=== PATIENT | female | born 2000 | race Caucasian/White ===

== ENCOUNTER 2019-03-01 15:44 | Outpatient (RCR) | payer BC, OTHER, SELFPAY ==
--- NOTE | 2019-03-01 11:15 | BH.SGPN.GN ---
Behaviors/Verbalizations/Mental Status: []Eye contact is good. Motor activity is appropriate. Appearance is casual. Speech is soft. Mood is anxious. Affect is flat. Thoughts are linear and logical. No evidence of psychosis. Client Response/Progress/Benefit: []Client was engaged in session, quiet, but participating when prompted. Group identified various types of self-care which included spiritual, physical, emotional, social, financial, psychological, and professional. Client did well to reflect upon what she is currently doing in each self-care category and identify areas she can improve to promote balance. Client identified practices she is currently using in the different areas which included: showering, sitting outside, talking with friends, coloring, singing, taking time for herself, and following up with doctor?s appointments. Benefited from assessing current self-care balance and developing strategies to increase self-care in areas she feels are lacking. Client wrote down self-care practices she would like to try such as disconnecting from electronics, using mindfulness, and meditating. Client left group a few minutes early and did not get to share her self-care goal. Client?s first day of PHP. Recommended continued tx to prevent decompensation and reduce symptoms. [
--- NOTE | 2019-03-01 17:14 | BH.MDN ---
Multi-Disciplinary Note - Note 60-min Individual Time Started:: 12:26 Date: 03/01/19 Purpose of session/treatment goals addressed:: The purpose of this session was to process pt first day in IOP program and gather information on client's current stressors, symptoms, and treatment goals. Another goal was to establish rapport, introduce concept of positive affirmations, and provide homework. Eye Contact:: Good Motor Activity:: Appropriate Appearance:: Casual Speech:: Appropriate Mood:: Anxious, Depressed Affect:: Congruent Thoughts:: Linear, Logical, No evidence of hallucinations/delusions noted Staff Interventions:: Therapist used active listening and open-ended questions to elicit information regarding pt's current stressors, symptoms, and supports. Applied strengths perspective to begin establishing rapport and help client identify positives and personal strengths. Therapist provided empathic responses and emotional validation as pt processed events leading up to recent hospitalization. Discussed techniques and means for coping that have helped pt manage stressors in the past. Therapist provided psychoeducation on depression cycles and importance of positive-self talk. Assisted client in identifying overall treatment goals. Therapist gave client homework to practice saying at least one affirmational statement and create a positive music playlist to listen to in times of increased stress. Client Response:: Client responded well to session, discussed that she had enjoyed the first day in PHP program and found materials discussed to relate to her own life and current struggles. Shared connecting with fellow participants and enjoyed the activity portion of group as she noted this had been her favorite part of groups during inpatient hospitalization. Client stated she was referred to [facility] by [facility] following inpatient admission from following suicide attempt via . Pt reports she has been experiencing increased depression and anxiety for a while and that her symptoms were exacerbated after she decided to rent an apartment with her boyfriend who then ended the relationship. She reports becoming overwhelmed by now having to pay for the apartment on her own and struggling to deal with the break-up. She indicated prior hospitalization she began to isolate, sleep for long periods of time throughout the day, experience passive thoughts of , and found she no longer has much of an appetite. Pt went on to describe sx significant for anxiety including racing thoughts, shaking, fear of the future, and crying spells. Following discharge from [facility], pt reports no longer experiencing active suicidal ideation, plan, or intent and attributes this to being removed from triggers at her apartment and having increased support from family as well as hope that she can improve her ability to cope. Per pt report, her family is supportive but does not fully understand pt mental health needs. She went on to indicate that she knows she is not ready to return to independent living at her apartment but finds her parent?s home to be stressful and at times triggering to pt. Further discussed that although pt believes her family means well, they struggle at times with placing high expectations on client, fighting around her which is a trigger, and not being able to understand her. Pt reports her current symptoms include overwhelming stress, racing thoughts, decreased sleep at night and increased sleep throughout the day, poor appetite, low motivation, medication noncompliance, poor hygiene, poor self-esteem, passive thoughts of without plan or intent. Indicates she hopes to return to living on her own by increasing healthy means for coping, improving medication compliance, and expanding her current support network. Risks/Concerns:: Client denies any active suicidal ideation, plan, and intent as of 03/01/19. Future oriented and has supports. Reports family and hope for her future as motivations to live. Progress Toward Goals/Plan:: No progress noted yet as it is client?s first day in PHP. However, pt appears motivated to engage in treatment and shared that the first day had been a positive experience. She indicated she has a history of anxiety, panic, and depression. Reports previous hx of SI, denies current plan or intent and would like to seek tx to better manage mental health sx so she does not decompensate again. Client currently endorses racing thoughts, feeling unmotivated and overwhelmed, increased sleep, increased anxiety about taking on new things, and avoidance. Pt receptive to homework and indicates willing to try applying positive self-talk in order to combat and decrease negative thoughts. Identified her treatment goals to be learning healthy coping skills, reducing depression, and finding ?balance? in her life. Client to continue PHP to prevent decompensation, maintain safety, and increase healthy means of coping. Time Stopped:: 13:16
--- NOTE | 2019-03-02 08:17 | BH.MDN ---
Multi-Disciplinary Note - Note 60-min Individual Time Started:: 12:10 Date: 03/02/19 Purpose of session/treatment goals addressed:: Purpose of this session was to assess current symptoms, stressors, and adjustment to IOP tx. Another purpose was to work with pt to develop a crisis safety plan aimed at identifying warning signs, triggers, healthy coping tools, motivations to live, as well as supports she may use when experiencing increased severity of mental health sx. Eye Contact:: Good Motor Activity:: Appropriate Appearance:: Casual Speech:: Appropriate Mood:: Anxious, Depressed Affect:: Congruent Thoughts:: Linear, Logical, No evidence of hallucinations/delusions noted Staff Interventions:: Asked open-ended and furthering questions to elicit additional information regarding current sx and functioning. Provided empathic responses and supportive feedback. Utilized ID techniques to elicit change behaviors. Provided psychoeducation on internal and external coping skills, grounding techniques, and local crisis resources to help pt create a Crisis Safety Plan. Client Response:: Pt receptive of session, engaged throughout. Discussed continuing to adjust to treatment environment but feels the support of the group has been helpful. Pt indicated that she has been struggling with significant negative self-talk and continues to ruminate on the end of her relationship. Pt discussed feeling purposeless and lonely as she limited support she is able to talk about her current stressors as she had previously relied on her ex for that type of support. Indicates her parents are caring but don?t understand and are often busy with their own things. Noted siblings are not understanding either. Pt did express some friends in the area who she could talk to however is struggling not to isolate. Reported understanding how reaching out to supports could aid in reducing depression and expresses plans to call a friend chance. Continues to report passive SI, without plan or intent. Pt and therapist worked together to complete a Crisis Safety Plan which included: warning signs, emergency telephone numbers, 3-4 coping strategies for SI, lists of supports, positive aspects of his/her life, and motivations. Discussed the benefits and times to use this plan. Reports feeling depressed and anxious today and worried about management of mental health sx while at work. Reviewed internal coping strategies and affirmations pt can use in times of increased anxiety and depression. Pt notes that she can spend time coloring or doing her nails to relax, remind herself ?you can get through this?, and reach out to her supports. Risks/Concerns:: Pt continues to report passive SI, but at a decreased intensity and severity. Denies current plan or intent as of this date 03/02/19. No current access to firearms or large stockpiles of medication. Future oriented and indicates ability to maintain safety. Progress Toward Goals/Plan:: Progress noted. Pt reports feeling less depressed and more supported since beginning program. Consistent attendance. Active participant in groups. Improvedability to identify motivations to life and positive affirmations she can use in times of increased anxiety. Depression, anxiety, and stress continue to impact daily thoughts. Learning to challenge and identify thoughts and distortions. Working to more consistently begin using coping skills. Limited use of supports Will continue in PHP to maintain safety, prevent decompensation, and to increase coping strategies. Time Stopped:: 13:12
--- NOTE | 2019-03-02 09:08 | BH.SGPN.GN ---
Behaviors/Verbalizations/Mental Status: []Client alert and oriented, casually dressed and groomed. Eye contact good. Motor activity appropriate. Speech soft. Affect constricted, mood dysthymic. Thoughts linear, logical, no signs of hallucinations or delusions. Reviewed client?s symptom tracker, no risk for suicidal ideation, plan, or intent as of 03/02/19. Client Response/Progress/Benefit: []Client responded well to session, attentive throughout. Client reports feeling ?tired and less energetic? today. Client current stressor is she has been experiencing increased IBS symptoms and is worried she cannot afford her new IBS medication. Client receptive to feedback from peers on different medications and coupons. Client?s current positives include recently spending time with her family and practicing thought challenging last evening. Client reported she wrote out her negative thoughts and underneath them she wrote reframed thoughts. Appeared to benefit from connecting with peers and receiving supportive statements. Progress noted in client?s application of thought challenging. Will continue IOP tx to prevent decompensation and improve emotional regulation skills.?
--- NOTE | 2019-03-02 11:10 | BH.SGPN.GN ---
Behaviors/Verbalizations/Mental Status: [Client alert and oriented, casually dressed and groomed. Eye contact fair to good. Motor activity appropriate. Speech within normal limits. Affect congruent, mood dysthymic, anxious. Thoughts linear, logical, no signs of hallucinations or delusions. ] Client Response/Progress/Benefit: [Client responded well to session, attentive and engaged during small group session. A times pt appearing to struggle with attentiveness due looking at phone throughout discussion. Group discussed the mental health benefits of recognizing strengths which included; improved self-esteem, better relationships, and being able to better problem solve, as well as willingness to ask for help. Group identified the barriers that have prevented them from acknowledging their strengths and successes. These barriers included; negative thoughts, feeling like a burden, negative outlook, lack of awareness of strengths. Group identified strategies to overcome barriers that prevent them from seeing strengths. These strategies included; keeping track of progress, practicing using affirmations, and reaching out to supports to challenge perspective when needed. Client initially struggling to identify strengths, though able to identify personal strengths she possesses with assistance, which included; independence, intelligence, sense of humor, ability to listen, and creativity. Appeared to benefit from recognizing personal strengths and identifying strategies to overcome barriers. Will continue PHP tx to improve mood stability, further increase healthy coping skills for managing depression and anxiety, maintain safety, and prevent decompensation. ] Narrative Note: []
--- NOTE | 2019-03-02 15:09 | BH.MTP_ITS ---
Master Treatment Plan - Patient Information Program Physician:: Danika Irwin Primary Therapist:: Romina Perry - Estimated LOS Estimated LOS (in weeks):: 1 Problem/Goal #1 - Problem/Goal #1 Stated Goal:: Client will reduce depression, feelings of hopelessness, anhedonia, and negative thoughts, and passive thoughts of due to Major Depressive Disorder through PHP Program. Description of Barriers: Financial stress, limited supports, relationship conflict, low energy and motivation, poor sleep, and intrusive thoughts reinforcing sx of anxiety and depression. Functional Impact: Client is a 18 y/o female who completed the Behavioral Health PHP program on 03/08/19 following inpatient psychiatric hospitalization. Pt was hospitalized at [facility] February 22 - February 25 following suicide attempt via overdose. At time of attempt, pt reports taking 14 ibuprofen following a breakup on February 17. Pt reports a hx of depression and anxiety and has had 2 previous suicide attempts occurring in 2017 and 2018 via overdose. At time of admission, pt reports ongoing depression and anxiety exacerbated by several financial stressors, isolation, and work-related stress, client endorsed a depressed mood, anhedonia, hopelessness, and low self-esteem. Client also endorsed ruminative anxiety most often surrounding the workplace and finances, reports panic attacks, crying spells, and passive SI. Goal Relevant Strengths/Supports: Client presents as a motivated, hard-working, creative, and kind woman who wants to improve her mental health and functioning. Client is open to trying new strategies for managing mental health sx and is willing to learn and apply new skills. Client is active in group and open to sharing around others. Client enjoys spending time with her friends, drawing, and exercising. - Objectives Objective #1 Stated Objective: Work with client to develop a ?crisis plan? which includes emergency telephone numbers, 3-4 coping strategies for SI, lists of supports, positive aspects of life, and motivations. Work with client to identify 3-4 sources or triggers to suicidal ideations to increase insight. Identify 3 effective thought-stopping skills to utilize. Interventions: Therapist will provide list of crisis phone numbers. Therapist will work with client to identify effective coping strategies and steps to take in time of mental health crisis and provide psychoeducation regarding effective calming strategies. Work with client to identify mental health warning signs/triggers for depression or experienced prior to previous crisis. Discharge Criteria: Client will have achieved this goal once he completes his safety plan and is able to utilize coping and thought replacement strategies to prevent and manage symptoms associated with increased depression or warning sign s for crisis escalation. Target Date: 03/09/19 Review Date: 03/09/19 Problem/Goal #2 - Problem/Goal #2 Stated Goal:: Reduce overall frequency, intensity, and duration of the anxiety so that daily functioning and occupational functioning is not impaired. Description of Barriers: Financial stress, limited supports, relationship conflict, low energy and motivation, poor sleep, and intrusive thoughts reinforcing sx of anxiety and depression. Functional Impact: Client is a 18 y/o female who completed the Behavioral Health PHP program on 03/08/19 following inpatient psychiatric hospitalization. Pt was hospitalized at [facility] February 22 - February 25 following suicide attempt via overdose. At time of attempt, pt reports taking 14 ibuprofen following a breakup on February 17. Pt reports a hx of depression and anxiety and has had 2 previous suicide attempts occurring in 2017 and 2018 via overdose. At time of admission, pt reports ongoing depression and anxiety exacerbated by several financial stressors, isolation, and work-related stress, client endorsed a depressed mood, anhedonia, hopelessness, and low self-esteem. Client also endorsed ruminative anxiety most often surrounding the workplace and finances, reports panic attacks, crying spells, and passive SI. Goal Relevant Strengths/Supports: Client presents as a motivated, hard-working, creative, and kind woman who wants to improve her mental health and functioning. Client is open to trying new strategies for managing mental health sx and is willing to learn and apply new skills. Client is active in group and open to sharing around others. Client enjoys spending time with her friends, drawing, and exercising. - Objectives Objective #1 Stated Objective: Client will identify 2-3 anxiety/rumination triggers and at least 2-3 coping skills to use when feeling overwhelmed or anxious. Interventions: Therapist will help client increase awareness of cognitive distortions, triggers, and warning signs for anxiety. Therapist will encourage client to focus on stressors relevant to the situation and that are in his control. Therapist will utilize CBT, DBT, and mindfulness strategies to teach client ways to manage symptoms and increase emotional regulation. Discharge Criteria: Client will have met this goal when can reduce the need for reassurance and identify at least 2 triggers and 2 ways to cope with anxiety and obsessive thoughts. Target Date: 03/09/19 Review Date: 03/09/19
--- NOTE | 2019-03-03 09:02 | BH.SGPN.GN ---
Behaviors/Verbalizations/Mental Status: [Client alert and oriented, casually dressed and appropriately groomed. Eye contact good. Motor activity appropriate. Speech within normal limits. Affect congruent to topic being discussed, mood depressed, anxious. Thoughts linear and logical, no signs of hallucinations or delusions. Reviewed daily check in sheet, pt reports SI as a 2/5, denies current SI, plan, or intent. Will meet with individual counselor to further assess for safety] Client Response/Progress/Benefit: [Pt engaged in group discussion, listening and providing some input to discussion Emotion for today is relieved but slightly hyper. Pt indicated that current emotion is due to feeling more comfortable with her ability to cope with current mental health stressors and getting a solid night?s sleep. Able to identify current mental health wins. Expressed win as using calming skills while at work to manage anxiety and found positive self-talk to be particularly helpful. Indicates that current stressors is concern for the mental health of a friend of hers. Able to recognize importance of balance when providing support so sh does not become emotionally burnt out as well. Pt receptive of and appearing to benefit from feedback and support provided by fellow participants. Progress indicated by pt self-report of more consistent skill application and reduction of anxiety. Pt recommended continued PHP tx to promote continued use of coping skills, maintain stability, and prevent decompensation. ] Narrative Note: []
--- NOTE | 2019-03-03 10:37 | BH.NA_ITS ---
Physical Data - Vital Signs Pulse Rate: 86 Respiratory Rate: 14 Blood Pressure: 110/73 - Height/Weight Height: 1.55 m Weight:: 54.5 kg Weight in Pounds: 120.2 lbs Current Medication Compliance - Medication Compliance Do you take your medication as prescribed?: Yes Do you need assistance with taking medication?: No Have you had side effects from medication?: No Nutritional History - Appetite Nutritional Instructions:: If client shows signs of a swallowing problem, weight change of 10 pounds or more in the last month, or is on a diabetic diet, the physician will review and request a dietitian consult, as appropriate. All unintentional weight loss will be referred to the physician for decision on need for dietitian consult. Describe your appetite:: Fair Have you noticed a change in your eating habits lately?: Yes Functional Assessment - Sleep Pattern Describe any problems with sleeping: Client reports difficulty staying asleep most nights, which she relates to her anxiety and rumination. - Activities Motor Activity:: Functional Sensory/Communication Assess - Hearing Problems Do you have any hearing problems?: Adequate - Communication Problems Do you have difficulty understanding what people are saying?: No Do you have trouble putting your thoughts into words or expressing what you want to say?: No Do people ever have trouble understanding what you say?: No What is your primary language?: Lithuanian Learning Assessment - Learning Barriers Learning Barriers:: Ready to learn Medical Problems/History - Pain Assessment Do you have acute or chronic pain?: No - Female Reproductive Do you think you may be ?: No Number of pregnancies:: 0 Number of children:: 0 Have you reached menopause?: No Do you have any history of breast disease?: No - Family History Family History: Family History (Last Reviewed 03/29/19 @ 13:53 by Janice Morales) Other Hypertension Surgical History - Surgical History Have you had any surgeries? If so, list type and date:: No Substance Abuse - Substance Abuse Please describe substance abuse in the last 30 days:: Client denies ETOH, tobacco, and substance use. Mental Status Summary - Mental Status Significant Findings/Observations on Appearance and Mood:: Niharika is A&Ox4, cooperative with interview, and makes good eye contact. Steady gait. Speech is clear and of normal rate and volume. Mild depression, anxiety, and anhedonia. Mood congruent affect. Logical associations. Normal process. No symptoms of delusions. Denies hallucinations, HI, and SI. Suicide Assessment - Suicidal Ideation Are you currently or have you been suicidal in the past?: Yes Suicidal Intentional Rating Scale (SIRS): Suicidal thoughts (past) Physician Notification: If Active suicidal thoughts/Will not contract for safety is checked, contact physician and document in the Physician Notification section below. Past Psychiatric History - MH Treatment Hx Past Psychiatric Medications:: Lexapro ECT Therapy Details:: N/A Describe (age, circumstance, etc) any past hospitalizations: 02/22/19-02/25/19: [facility] for SI without plan/intent Fall Risk Assessment - Age Age: Less than 60 - Mental Status Mental Status: Willing & able to ask for assistance when needed - Physical Status Physical Status: No problems - Impairments Impairments: None - Elimination Elimination: Continent AND independent - Gait or Balance Gait or Balance: Walks independently - Hx of Falls History of falls in the past 6 months: No known history - Medications/Substances Psychotropics:: Antidepressants Medications/substances used within the past 24 hours or ordered to administer: 1-2 of the medications/substances listed above - Total Score Total Points:: 1 Physician Notification - Physician Notification Physician Notified: Danika Irwin Method of Notification: Face to Face Comments: treatment planning discussion RN Summary of Impressions - Impressions Recommendations: Include psychiatric and medical issues, treatment planning recommendations, and discharge planning needs. Impressions: Psychiatric Issues: severe MDD, recurrent, without psychosis Impression: General Medical Conditions: IBS Impressions: Discharge Planning Needs: Client is connected with PCP - Level of Care How do the client's current symptoms and functional deficits support need for this level of care?: Client notes a decompensation in her mental health for several weeks, endorsing passive thoughts of and panic attacks. She was recently hopsitalized due to suicidal ideations, and while she is no longer having active SI, she is still quite depressed. She also recently stopped taking Lexapro and is not currently on any antidepressant or psychiatric medication. Niharika notes that she has been ruminating and sad about a recent breakup, finances, and her living situation. She has had a diminished appetite, which seems to be slowly returning, but no significant weight loss. Client also endorses sleep quality below her baseline. IOP will promote gains and provide social support while preventing further decompensation.
--- NOTE | 2019-03-03 10:37 | BH.NET ---
Nursing Education/Training - Session Information Type of Session: Individual Medical Management:: IBS and associated medications Symptom management (include medical issues as they relate to psychiatric symptoms):: Niharika notes that she has not been taking the Amitiza that she was prescribed by her PCP for IBS-C due to insurance and cost issues. She notes that PCP's office attempted to get the medication prior authorized, but her portion of the cost was still over $200, which she cannot afford. Client was advised to contact the office to request another medication for this condition that may be covered, possibly Linzess. Other Health Issues:: Advised client to contact this nurse with any other health concerns or questions, or if able to assit in this matter further. She denies additional questions or needs at this time.
[2019-03-03 10:42] VITALS: BP 110/73; PULSE 86; RESP 14
--- NOTE | 2019-03-03 11:15 | BH.SGPN.GN ---
Behaviors/Verbalizations/Mental Status: []Client alert and oriented, casually dressed and groomed. Eye contact good. Motor activity slowed. Speech within normal limits. Affect constricted, mood mellow. Thoughts linear, logical, no signs of hallucinations or delusions. Client Response/Progress/Benefit: []Client participated in group discussion, taking notes, and providing input to discussion. Attentive during psychoeducation on 4 zones of regulation. Client able to identify how she feels in each zone as well as how she acts in each zone. Client also able to identify coping skills she can use to support herself in each zone which included: deep breathing, showering, using positive self-talk, and taking care of self-care needs. Client shared she is in the ?green/yellow zones? or the alert and heightened alertness zones as client shared ?I?m feeling better, almost stable, but I still feel restless and on edge.? Client recognized she could benefit from reaching out to her supports today and practicing positive self-talk. Benefited from group from increased education on zones of regulation or stages of alertness for emotions and healthy coping skills to use for each zone. Recommended continued PHP tx to prevent decompensation, maintain safety, and increase application of healthy coping skills.
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
--- NOTE | 2019-03-03 14:57 | BH.MDN ---
Multi-Disciplinary Note - Note 60-min Individual Time Started:: 12:16 Date: 03/03/19 Purpose of session/treatment goals addressed:: Purpose of this session was to assess current symptoms, stressors, and progress in PHP tx. Another purpose was to work with pt on reviewing cycle of depression and identifying small opposite action goals to improve confidence and reduce sx severity. Eye Contact:: Good, Other - tearful at times throughout discussion Motor Activity:: Appropriate Appearance:: Casual Speech:: Appropriate Mood:: Anxious, Dysthymic Thoughts:: Linear, Logical, No evidence of hallucinations/delusions noted Staff Interventions:: Asked open-ended and furthering questions to elicit additional information regarding current sx, stressors, and skill application. Provided empathic responses and supportive feedback, as well as aided pt in challenging distortions impacting anxiety and self-esteem levels. Provided psychoeducation on maintenance cycles and Utilized MS techniques to elicit change behaviors and establish small opposite action goals for reducing mental health sx severity. Client Response:: Pt receptive of session, engaged throughout. Discussed observing improvements in her overall mood and is feeling less lethargic throughout the day and more relaxed. Pt notes struggles with anxiety and depression, to which she attributes to current stressors of finances, occupational expectations, and her parents. Pt discussed feeling invalidated and blamed by her parents for her mental health struggles. Noted that they had ?accused me of planning my depression? because she began experiencing sx around the same time as a friend of hers. Able to regulate herself when confronted and shared ?taking a step back to eat and take a deep breath, rather than responding?. Pt noted listening to music to calm herself afterwards. Expressed feeling like a burden, however did well to work with therapist on challenging these thoughts. Identified affirmational statements she put in her room to read when feeling unsupported or having negative thoughts about self. Went on to indicate another major stressor as anxiety in the workplace and explained ?I was shaking at work yesterday, I was so anxious?. Worked with therapist to identify workplace triggers and potential strategies for reducing triggering stimuli, taking a break, and ways to calm herself when feeling overwhelmed. Additionally, pt identified she could speak to her boss about taking on less while working on her mental health in the PHP program to reduce anxiety. Risks/Concerns:: Pt continues to report passive SI, but at a decreased intensity and severity. Denies current plan or intent as of this date 03/03/19. No current access to firearms or large stockpiles of medication. Future oriented and indicates ability to maintain safety. Progress Toward Goals/Plan:: Progress noted. Pt reports feeling less depressed andis taking strides to engage in self-care activities and basic hygiene practices. Reports improved ability to use calming skills when triggered and prevent escalating to point of crisis. Pt continues to report that depression, anxiety, and stress continue to impact daily thoughts; however this is improving with more consistent skill application. Limited use of supports, however pt has taken steps to reach out to a friend via text. Will continue in PHP to maintain safety, prevent decompensation, and to increase coping strategies. Time Stopped:: 13:08
--- NOTE | 2019-03-04 09:00 | BH.SGPN.GN ---
Behaviors/Verbalizations/Mental Status: []Client alert and oriented, casually dressed and groomed. Eye contact good. Motor activity appropriate. Speech within normal limits. Affect full, mood calm. Thoughts linear, logical, no signs of hallucinations or delusions. Reviewed client?s symptom tracker, no risk for suicidal ideation, plan, or intent as of 03/04/19. Client Response/Progress/Benefit: []Client responded well to session, participating when prompted. Client reports feeling ?alert and less numb? today. Client reported she used coping skills since last session and client was able to recognize positives. Client?s positives included swimming with her parents, getting paid this morning, and using positive self-talk when exposed to negativity. Client shared she continues to feel anxiety and frustration about her physical health problems. Client shared she has to figure out a new medication for her IBS and it is causing client increased anxiety. Client was provided ideas from group on how she can deal with this. Appeared to benefit from processing stressors with group support. Progress noted in client?s report of using self-talk. Will continue IOP as she continues to struggle with mood instability.?
--- NOTE | 2019-03-04 09:22 | BH.MDN ---
Multi-Disciplinary Note - Note 45-min Individual Time Started:: 12:21 Date: 03/04/19 Purpose of session/treatment goals addressed:: Purpose of this session was to assess current symptoms, stressors, and progress in PHP tx. Another purpose was to work with pt on identifying effective ways to communicate her needs and set healthy boundaries in the workplace. Eye Contact:: Good Motor Activity:: Appropriate Appearance:: Casual Speech:: Appropriate Mood:: Euthymic, Anxious Affect:: Full Thoughts:: Linear, Logical, No evidence of hallucinations/delusions noted Staff Interventions:: Asked open-ended and furthering questions to elicit additional information regarding current sx, stressors, and skill application. Provided empathic responses and supportive feedback, as well as aided pt in challenging distortions impacting anxiety and self-esteem levels. Provided psychoeducation on boundary setting and aided pt in developing phrases for communicating boundaries. Utilized CT techniques to promote ongoing change behaviors. Client Response:: Pt receptive of session, engaged throughout. Shared she continues to feel increased energy and reduced depression. Noted feeling hyper today and is not sure why but worries that she will ?crash? and begin struggling again. Receptive of discussion on identifying small positives throughout the day in order to maintain a more optimistic/positive outlook. Pt shared she has not yet discussed cutting back on responsibilities at work due to anxiety about doing so. Completed decisional balance with therapist weighing pros/cons of having the conversation about boundaries. Insight that continuing to avoid discussion will only reinforce anxiety. Open to working with therapist on creating assertive boundary setting statements for pt to practice in order to communicate her needs with her boss. Discussed ways to calm herself and encourage follow through prior to discussion. Indicates planning to practice identified statements as well as use self-coaching statements. Willing to speak with her employer this evening. Risks/Concerns:: Denies current SI, plan, or intent as of this date 03/04/19. No current access to firearms or large stockpiles of medication. Future oriented and indicates ability to maintain safety. Progress Toward Goals/Plan:: Some progress noted. Pt reports feeling less depressed and notes improved energy as well. Additionally, discussed not experiencing any SI in past day which indicates progress as well. Continues to report anxiety in social settings or times of potential conflict, however notes willingness to continue working to improve in this area. Is using self-soothing and positive self-talk to do so. Reports goal of beginning to move back into her apartment as she continues to stabilize. Will continue in PHP to maintain safety, prevent decompensation, and to increase coping strategies. Time Stopped:: 13:12
--- NOTE | 2019-03-04 10:04 | BH.SGPN.GN ---
Behaviors/Verbalizations/Mental Status: [Client alert and oriented, casually dressed and appropriately groomed. Eye contact fair to good. Motor activity appropriate. Speech within normal limits. Affect congruent, mood euthymic, anxious. Thoughts linear, logical, no signs of hallucinations or delusions. ] Client Response/Progress/Benefit: [Client was an active participant in group activity and provided input to discussion throughout. She connected with the topic of obstacles and solutions and worked with group to identify common internal and external barriers that could prevent progress towards desired reality. Client discussed with the group struggling to identify and address internal barriers at times which then makes it difficult to manage mental health sx. With assistance, pt able to identify her own internal barriers preventing pt from reaching desired reality which included: people pleasing, assuming the worst, stubbornness, and fear of the unknown. Benefited from group as client was able to identify impact of internal barriers on current mental health state and ability to make progress. Will continue PHP to prevent decompensation and improve application of skills learned, as well as reduce depression and anxiety.] Narrative Note: []
--- NOTE | 2019-03-05 09:06 | BH.SGPN.GN ---
Behaviors/Verbalizations/Mental Status: []Client alert and oriented, disheveled appearance. Eye contact good. Motor activity appropriate. Speech within normal limits. Affect full, mood euthymic. Thoughts linear, logical, no signs of hallucinations or delusions. Reviewed client?s symptom tracker, no risk for suicidal ideation, plan, or intent as of 03/05/19. Client Response/Progress/Benefit: []Client responded well to session, attentive and engaged throughout session. Client reports feeling ?off and less energetic? today. Client unable to identify a specific trigger, but with further exploration, client recognized that she did not take her medications this morning which is likely a contributor. Client?s mental health wins today included using positive self-talk at work yesterday and being able to cope with her anxiety ?without freaking out? at work. Client shared she started to have symptoms of a panic attack while she was working yesterday, but client reported she was able to calm herself down by deep breathing. Client appeared to benefit from reflecting on her generalization of coping skills. Will continue tx to promote use of healthy coping skills and increase daily functioning through reduction of symptoms.
--- NOTE | 2019-03-05 09:23 | BH.MDN ---
Multi-Disciplinary Note - Note 60-min Individual Time Started:: 08:28 Date: 03/05/19 Purpose of session/treatment goals addressed:: Purpose of this session was to assess current symptoms, stressors, and progress in PHP tx. Another purpose was to work with pt on identifying strategies for reducing anxiety and maintaining stability as she begins transitioning back to independent housing. Eye Contact:: Good Motor Activity:: Appropriate Appearance:: Casual Speech:: Appropriate Mood:: Euthymic, Anxious Affect:: Congruent Thoughts:: Linear, Logical, No evidence of hallucinations/delusions noted Staff Interventions:: Asked open-ended and furthering questions to elicit additional information regarding current sx, stressors, and skill application. Provided empathic responses and supportive feedback, as well as commended pt for application of distress tolerance skills and advocating for her needs. Utilized [place] techniques to promote ongoing change behaviors and identify strategies to maintain stability as pt m=returns to independent living. Client Response:: Pt receptive of session, engaged throughout. Shared successfully following through with plan to speak with her boss about reducing workplace responsibilities while to improve anxiety management. Pt explained initially not wanting to have the conversation and began usual responsibilities, however found herself becoming increasingly anxious in doing so and identified consequences of not advocating for her needs. Pt shared ?I don?t want to keep having panic attacks at work so I decided to go through with it?. Indicated the conversation had been successful and employer agreeable. Pt went on to discuss that she has thought more about wanting to get back to living on her own and return to her apartment rather than continue to stay with her parents. Noted insight that the environment contains some triggers reminding her of her ex and explained going back to the apartment on previous date to change the sheet and remove items that remind her of her ex. She discussed with this therapist plans to start small and just stay at the house one night. Plans to do so on Friday and will consider having her sister come stay with her as well. Worked to identify ways to make the environment more inviting and comfortable. Pt indicated plans to hang-up positive quotes and images around the apartment. Discussed that she could complete activities she previously enjoyed to improve self-confidence and feel more like herself and comfortable in own skin. Indicated plans to get her hair done and listen to her favorite music. Risks/Concerns:: Denies current SI, plan, or intent as of this date 03/05/19. No current access to firearms or large stockpiles of medication. Future oriented and indicates ability to maintain safety. Progress Toward Goals/Plan:: Progress noted. Pt reports increased ability to regulate her emotions and better manage symptoms of anxiety. Indicates improved ability to engage in self-care and indicates increased self-esteem as well. Noted that she continues to struggle at times with managing her emotions and ruminating thoughts causing anxiety. Expressed some reduction of isolation but continues to struggle in this are. Reports ongoing goal of beginning to move back into her apartment as she continues to stabilize. Will continue in PHP to maintain safety, prevent decompensation, and to increase coping strategies. Time Stopped:: 09:15
--- NOTE | 2019-03-05 10:15 | BH.SGPN.GN ---
Behaviors/Verbalizations/Mental Status: []Client alert and oriented, casually dressed and groomed. Eye contact good. Motor activity appropriate. Speech within normal limits. Affect constricted, mood anxious. Thoughts linear, logical, no signs of hallucinations or delusions. Client Response/Progress/Benefit: []Client responded well to session, attentive throughout session and often nodding. Client indicated connecting with the topic of cognitive distortions and nodded at the comment that thoughts can destroy one?s ability to function. Client agreed with group that negative thoughts impact one?s emotions, behaviors, and increase mental health symptoms. Client did well to work with the group on defining the various types of cognitive distortions and their impact on mental health. Client reported connecting with distortions of disqualifying the positives, mind-reading, and predicting the future. Appeared to benefit from increasing awareness of cognitive distortions and how they can impact emotions and behaviors. Client is showing strides in increasing awareness and learning coping skills. Will continue PHP to promote mood stability, maintain safety, and increase application of coping skills.
--- NOTE | 2019-03-08 09:03 | BH.SGPN.GN ---
Behaviors/Verbalizations/Mental Status: []Client alert and oriented, disheveled appearance. Eye contact good. Motor activity appropriate. Speech within normal limits. Affect congruent, mood euthymic. Thoughts linear, logical, no signs of hallucinations or delusions. Reviewed client?s symptom tracker, no risk for suicidal ideation, plan, or intent as of 03/08/19. Client Response/Progress/Benefit: []Client responded well to session, providing to discussion and attentive throughout. Client reports feeling ?happy and tired? today. Client shared her current mental health positives with the group which included moving back into her apartment and ?not freaking out? at work this weekend. Client reported using deep breathing, self-talk, and self-care has helped client better manage her symptoms. Client stated that she is also looking into getting an emotional support dog to further promote mood stability. Client?s current stressor is needing to schedule an appointment for the doctor. Client shared knowing she needs to get this done and client could get the right medicine, is motivating client to schedule the appointment sooner rather than later. Client appeared to benefit from connecting with peers and reflecting on her generalization of coping skills. Progress noted in application of coping skills. Will continue PHP tx to further reduce symptoms and improve mood stability.
--- NOTE | 2019-03-08 09:24 | BH.MDN ---
Multi-Disciplinary Note - Note 45-min Individual Time Started:: 12:31 Date: 03/08/19 Purpose of session/treatment goals addressed:: Purpose of this session was to assess current symptoms, stressors, and progress in PHP tx. Another purpose was to identify areas for continued progress and goals for IOP tx. Eye Contact:: Good Motor Activity:: Appropriate Appearance:: Casual Speech:: Appropriate Mood:: Anxious, Dysthymic Affect:: Congruent Thoughts:: Linear, Logical, No evidence of hallucinations/delusions noted Staff Interventions:: Asked open-ended and furthering questions to elicit information regarding current sx, stressors, and progress in PHP treatment. Provided empathic responses and supportive feedback. Utilized [place] techniques to promote ongoing change behaviors, recognize areas for continued growth, and identify goals for IOP treatment. Client Response:: Pt reports some anxiety and depression today. Reports this is due to struggling with unexpected medical issues related to her reproductive health. Shared that she has been in a lot of pain recently and fears that there may be something seriously wrong. 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 Noted feeling her concerns will continue to be invalidated if returns to the doctor. Able to work with therapist on challenging distortions associated with this stressor. Some difficulties in challenging use of catastrophizing. Open to seeking a second opinion with [facility] gynecology to ensure medical needs are met. Worked with therapist to discuss areas of progress in php tx and focus of treatment upon stepping down to IOP level of care. Pt reports improvements in reduced depression and anxiety, improved mood stability, and better use of healthy coping skills in times of increased stress. Denies any suicidal ideations, plan, or intent. Reports feeling more comfortable being alone in the house. Insight into the positives of being more independent. Expressed desire to continue to improve self-confidence, reduce anxiety and depression, and continue to promote healthy boundaries. Risks/Concerns:: Denies current SI, plan, or intent as of this date 03/08/19. No current access to firearms or large stockpiles of medication. Future oriented and indicates ability to maintain safety. Progress Toward Goals/Plan:: Progress noted. Denies any suicidal ideations, plan, or intent. Reports decreased frequency, intensity, and duration on negative self talk and depression. Feeling more comfortable being alone in the house. Insight into the positives of being more independent. Has improved ability to manage sx of anxiety. No longer meets criteria of PHP level of care. Treatment goals accomplished. Discussed with treatment team will plan to step down to IOP. Time Stopped:: 13:13
--- NOTE | 2019-03-08 11:20 | BH.SGPN.GN ---
Behaviors/Verbalizations/Mental Status: [Client alert and oriented, casually dressed and groomed. Eye contact good. Motor activity appropriate. Speech within normal limits. Affect congruent, mood anxious, dysthymic. Thoughts linear, logical, no signs of hallucinations or delusions. ] Client Response/Progress/Benefit: [Client responded well to session, contributing to discussion. Engaged in ongoing psychoeducation on the different communication styles. Client connected with fellow participant?s personal example of how communication can lead to conflict and misunderstanding. Able to gain insight into her communication style and identified falling into each of the communication styles at different times, provided example of aggressive with family but passive at work. Client reported these communication styles have negatively impacted her mental health and relationships by reinforcing anxiety and preventing needs from being met. Participated in group activity and able to use the activity to reflect on ways to improve communication. Attentive during psychoeducation on effective communications strategies and reported she wants to work on self-confidence to feel more confident in ability to communicate her needs as well. Appeared to benefit from increasing self-awareness and practicing in the moment coping skills. Scheduled to step-down to IOP level of care given progress in PHP. Will continue tx to prevent decompensation and improve mood stability.] Narrative Note: []
--- NOTE | 2019-03-08 16:21 | BH.DS ---
Discharge Summary - Demographics Date of Admission:: 03/01/19 Discharge Date: 03/08/19 Presenting Problems at Admission:: Client was recently discharged from inpatient psychiatric hospitalization at [facility] February 22 - February 25 following suicide attempt via overdose. Pt reports taking 14 ibuprofen after going through a breakup on February 17. Pt reports a hx of depression and anxiety and has had 2 previous suicide attempts occurring in 2017 and 2018 via overdose. Reports she had been experiencing increased depression and anxiety for the past several months which was exacerbated by her boyfriend ending the relationship after pt signed a lease for an apartment they were supposed to rent together. At admission, client endorsed a moderately depressed mood with low motivation and mild anhedonia, inconsistent sleep, hopelessness, negative self-talk, and low self-esteem. Client also endorsed ruminative anxiety most often surrounding social situations and finances, panic attacks on a weekly basis. She denies a history of self-harm. For primary support she reports she has friends and her family, however at times indicate family as increasing anxiety. Discharge Diagnoses:: Major depressive disorder recurrent severe without psychosis, generalized anxiety disorder Reason for Discharge:: Pt no longer meets criteria for [facility] level of care as she has successfully completed treatment plan goals and no longer reports SI and indicates reduction in frequency and intensity of passive thoughts of . Pt indicates increased use of healthy coping skills for managing depression and anxiety. - Treatment Progress During Treatment & Response: Client appeared to respond well to treatment as evidenced by reports of improved ability to manage sx of anxiety and depression when recognizing warning signs and prevent escalation. Pt has displayed increased ability to apply internal coping skills of positive self-talk, posting affirmational statements around her living areas, and begin challenging unhelpful thought patterns. Pt has been able to make strides in reducing anxiety which is evidenced by her ability to move out of her parent?s house and return to her apartment. She is no longer reporting frequent thoughts of and denies active SI, plan, or intent. Pt has successfully completed a Crisis Safety Plan and indicates having hanging in a location easily accessible. While admitted in [facility], client was an active participant, seemed receptive to feedback from peers, took notes during sessions, and asked questions when needing clarification. Client was engaged in individual sessions as evidenced by her consistent completion of homework, openness and willingness to discuss her mental health and emotions, as well as application of skills discussed throughout sessions. At times pt appeared to experience difficulties in consistent application of coping skills and healthy boundaries. Pt additionally demonstrated progress during PHP through her ability to maintain safety, reports of decreased anxiety at home and in the workplace resulting in a reduction of symptoms of panic while at work, as well as an increase in in ability to practice self-care. Client stated actively using deep breathing, positive affirmations, thought challenging/reframing, and reaching out to her step-mother for support. Issues Still to be Addressed:: Pt has made progress with maintaining safety, following her safety plan, challenging negative thought patterns, and is beginning to use healthy coping skills to manage symptoms. However, she continues to struggle with negative self-esteem, rumination, setting healthy boundaries, and using internal coping skills to manage anxiety. Pt can continue to benefit from ongoing IOP treatment to prevent decompensation, increase self-esteem and coping skills, establish healthy boundary setting, and reduce negative thinking patterns. Discharge Recommendations/Instructions:: Client recommended to step down to IOP level of care to maintain gains, prevent decompensation, and further stabilize mood. Client would benefit from continued support, increased use of internal and external coping skills, increased distress tollerance skills, and medication management. Discharge Handout: Complete Discharge Handout with client on aftercare options and continuity of care.
--- NOTE | 2019-03-15 08:57 | BH.DS ---
Discharge Summary - Demographics Date of Admission:: 03/01/19 Discharge Date: 03/08/19 - Treatment Discharge Handout: Complete Discharge Handout with client on aftercare options and continuity of care.
== END 2019-03-08 14:00 | disposition home or self-care (01) ==
LOC: BHPHP 15:44
PROVIDERS: Family Provider Nurse Practitioner Family; PCP Nurse Practitioner Family; Referring Provider Psychiatry & Neurology Psychiatry; Visit Provider Psychiatry & Neurology Psychiatry
DX: F33.2 Major depressive disorder, recurrent severe without psychotic features (principal); F41.1 Generalized anxiety disorder; Z79.899 Other long term (current) drug therapy
CPT/HCPCS: H0035; 90834; 90837; G0410

== ENCOUNTER 2019-03-09 09:00 | Outpatient (RCR) | payer BC, OTHER, SELFPAY ==
--- NOTE | 2019-03-01 10:12 | BH.SGPN.GN ---
Behaviors/Verbalizations/Mental Status: [Pt alert and oriented, eye contact fair to good, casually dressed, motor activity appropriate, speech normal rate and tone, mood depressed, anxious, congruent affect, thoughts linear and intact, no evidence of delusions or hallucinations.] Client Response/Progress/Benefit: [Client engaged participant as shown by client?s contribution to discussion, insight provided, and taking notes throughout. Client participated in the discussion of the common myths about self-care including self-care is selfish, just involves hygiene, makes us weak, and always fun. Client worked with group to debunk the myths about self-care. Client stated she has been working to increase her time spent on self-care but continues to struggle with doing so due to putting other priorities first. Expressed noticing increased ability to cope with stress when caring for her own needs. Client seemed to benefit from increased awareness of the importance of self-care. Client showing variable progress as shown by continued difficulties in consistent use of healthy skills, especially at times of increased anxiety, when faced with an unexpected stressor, or struggling with motivation. Will continue tx to identify and challenge distorted thoughts, increase healthy coping skills, and prevent decompensation.] Narrative Note: []
--- NOTE | 2019-03-09 09:00 | BH.SGPN.GN ---
Behaviors/Verbalizations/Mental Status: [] Eye contact is good. Motor activity is appropriate. Appearance is casual. Speech is Appropriate. Mood is depressed. Affect is flat. Thoughts are linear and logical. No evidence of psychosis. Reviewed daily check in sheet and no reports of suicidal ideations or intent. Client Response/Progress/Benefit: [] Pt spoke when prompted. Quiet for majority of the group. Emotion for today is tired. Shared with the group that she had to set boundaries with ex last night. Reported how the relationship is toxic and causing significant distress for her. Shared the challenges with setting boundaries and moving on from past relationship however stated numerous times that she needs to worry about herself, focus on her mental health, and not cause unnecessary stress in her life. Admits that talking with ex increases depression and lead to SI, however reports that she used all her skills last night. Utilizing skills to manage thoughts. Increased insight and reports motivation to set firm boundaries. Progress noted per pt report. Benefited from group support, feedback, and encouragement. Will continue in IOP maintain safety, increase healthy coping, set boundaries, and decrease suicidal ideations. Narrative Note: []
--- NOTE | 2019-03-09 09:26 | BH.MTP_ITS ---
[facility] Treatment Plan - Patient Information Program Physician:: Dr. Danika Irwin Primary Therapist:: MICHOACANO Graves - Psychiatric Diagnoses Psychiatric Diagnoses:: Major depressive disorder recurrent severe without psychosis, generalized anxiety disorder. Diagnosis Code(s):: F33.2 - Estimated LOS Estimated LOS (in weeks):: 6 Problem/Goal #1 - Problem/Goal #1 Stated Goal:: Client will reduce depression, feelings of hopelessness, anhedonia, and negative thoughts, and passive thoughts of due to Major Depressive Disorder through Intensive Outpatient Program. Description of Barriers: Financial stress, limited supports, relationship conflict, low energy and motivation, poor sleep, and intrusive thoughts reinforcing sx of anxiety and depression. Functional Impact: Client is a 18 y/o female who completed the Behavioral Health PHP program on 03/08/19 following inpatient psychiatric hospitalization. Pt was hospitalized at [facility] February 22 - February 25 following suicide attempt via overdose. At time of attempt, pt reports taking 14 ibuprofen follow ing a breakup on February 17. Pt reports a hx of depression and anxiety and has had 2 previous suicide attempts occurring in 2016 and 2018 via overdose. At time of admission, pt reports some decrease in mental health sx since completing the PHP program, however continued to indicate ongoing depression and anxiety exacerbated by several financial stressors, isolation, and work-related stress. At IOP admission, client endorsed a depressed mood, mild anhedonia, hopelessness, and low self-esteem. Client also endorsed ruminative anxiety most often surrounding the workplace and finances, reports decreased panic attacks though continues to experience them on an infrequent basis. She denies a history of self-harm. For primary support she reports she has friends and her family, however at times indicates family as increasing anxiety due to yelling or limited understanding of pt mental health. Goal Relevant Strengths/Supports: Client presents as a motivated, hard-working, creative, and kind woman who wants to improve her mental health and functioning. Client is open to trying new strategies for managing mental health sx and is willing to learn and apply new skills. Client is active in group and open to sharing around others. Client enjoys spending time with her friends, drawing, and exercising. - Objectives Objective #1 Stated Objective: Client will consistently identify warning signs for depression and utilize 2-3 healthy coping strategies outside of distraction to manage depressive symptoms and increase mood stability. Interventions: Therapist will assist client in identifying warning signs and triggers for depression, suicidal ideation, and feelings of hopelessness. Therapist will teach client coping skills to reduce depression and encourage healthy emotional regulation. Discharge Criteria: Client will have accomplished this goal when he can identify and report using 2-3 healthy coping skills to reduce depressive symptoms. Target Date: 04/20/19 Review Date: 04/06/19 Objective #2 Stated Objective: Identify at least 2-3 negative self-talk messages used to reinforce feelings of worthlessness and replace thoughts with positive messages Interventions: Therapist will help client identify distorted, negative beliefs about self and replace with more realistic, affirmative messages. Discharge Criteria: Client will have achieved this goal when can verbalize at least 2 negative self-talk messages and effectively replace those thoughts with affirmative messages. Target Date: 04/20/19 Review Date: 04/06/19 Problem/Goal #2 - Problem/Goal #2 Stated Goal:: Reduce overall frequency, intensity, and duration of the anxiety so that daily functioning and occupational functioning is not impaired. Description of Barriers: Financial stress, limited supports, relationship conflict, low energy and motivation, poor sleep, and intrusive thoughts reinforcing sx of anxiety and depression. Functional Impact: Client is a 18 y/o female who completed the Behavioral Health PHP program on 03/08/19 following inpatient psychiatric hospitalization. Pt was hospitalized at [facility] February 22 - February 25 following suicide attempt via overdose. At time of attempt, pt reports taking 14 ibuprofen following a breakup on February 17. Pt reports a hx of depression and anxiety and has had 2 previous suicide attempts occurring in 2017 and 2018 via overdose. At time of admission, pt reports some decrease in mental health sx since completing the PHP program, however continued to indicate ongoing depression and anxiety exacerbated by several financial stressors, isolation, and work-related stress. At IOP admission, client endorsed a depressed mood, mild anhedonia, hopelessness, and low self-esteem. Client also endorsed ruminative anxiety most often surrounding the workplace and finances, reports decreased panic attacks though continues to experience them on an infrequent basis. She denies a history of self-harm. For primary support she reports she has friends and her family, however at times indicates family as increasing anxiety due to yelling or limited understanding of pt mental health. Goal Relevant Strengths/Supports: Client presents as a motivated, hard-working, creative, and kind woman who wants to improve her mental health and functioning. Client is open to trying new strategies for managing mental health sx and is willing to learn and apply new skills. Client is active in group and open to sharing around others. Client enjoys spending time with her friends, drawing, and exercising. - Objectives Objective #1 Stated Objective: Client will identify 2-3 anxiety/rumination triggers and continue to work on consistent application of at least 2-3 coping skills to use when feeling overwhelmed or anxious. Interventions: Therapist will help client increase awareness of cognitive distortions, triggers, and warning signs for anxiety. Therapist will encourage client to focus on stressors relevant to the situation and that are in his control. Therapist will utilize CBT, DBT, and mindfulness strategies to teach client ways to manage symptoms and increase emotional regulation. Discharge Criteria: Client will have met this goal when can reduce the need for reassurance and identify at least 2 triggers and 2 ways to cope with anxiety and obsessive thoughts. Target Date: 04/20/19 Review Date: 04/06/19
--- NOTE | 2019-03-09 11:17 | BH.SGPN.GN ---
Behaviors/Verbalizations/Mental Status: []Client alert and oriented, casually dressed and groomed. Eye contact fair. Motor activity slowed. Speech within normal limits. Affect flat, mood dysthymic. Thoughts linear, logical, no signs of hallucinations or delusions. Client Response/Progress/Benefit: []Client responded well to session, taking notes and contributing occasionally. Client appeared to connect with the activity from second group and helped the group identify benefits of having a strong foundation of internal and external coping skills. Client helped the group discuss the different categories of coping skills and provided examples. Client created a coping skills ?menu? for the five categories of coping skills. Client selected playing with animals, music, earthing, scheduling time for things she enjoys, and asking herself ?would I say this to my loved one? as her coping skills to try. Client appeared to benefit from increasing her repertoire of healthy coping skills. Client demonstrating progress as shown by her improved insight and knowledge of healthy coping skills, but she continues to struggle with manage emotions. Will continue IOP tx to promote gains made in PHP and further reduce symptoms.
--- NOTE | 2019-03-10 09:01 | BH.SGPN.GN ---
Behaviors/Verbalizations/Mental Status: [Eye contact is good. Motor activity is appropriate. Appearance is casual, grooming appropriate. Speech is Appropriate rate and tone. Mood is euthymic, positive. Affect is congruent. Thoughts are linear and logical. No evidence of psychosis. Reviewed daily check in sheet and pt denies any active SI, plan, or intent. ] Client Response/Progress/Benefit: [Pt responded well to session, engaged throughout and open to processing with the group. Pt indicated current emotion as ?confident? and discussed that this is due to noticing overall improvements in mood stability. Pt indicated her current mental health wins include seeing a healthy support yesterday when becoming anxious and lonely. Additional win identified as recognizing when she needed more support from her employer and taking initiative to speak with the fixed income portfolio manager about her concerns. Current stressor identified as experiencing physical back pain, but did well to identify self-care activities she can engage in without further irritating her back. Pt progress in self-report of increasing consistency of coping skill application, as well as improved ability to advocate for her own needs. Pt recommended continued IOP tx to prevent decompensation, and promote ongoing application of healthy coping skills, and improve mood stability.] Narrative Note: []
--- NOTE | 2019-03-10 10:17 | BH.SGPN.GN ---
Behaviors/Verbalizations/Mental Status: []Client alert and oriented, neatly dressed and groomed. Eye contact good. Motor activity appropriate. Speech within normal limits. Affect constricted, mood anxious. Thoughts linear, logical, no signs of hallucinations or delusions. Client Response/Progress/Benefit: []Client participated in group discussion and worksheet activity. Worked together with the group to define a crisis and discuss examples of crisis situations. Client helped the group explore how coping with crisis in unhealthy ways can lead to a mental health crisis. Client stated one can prevent external crises from turning into internal crises by recognizing early warning signs and using coping skills. Group identified warning signs one could have which included; self-harm, drinking or drugs, increased sleep, avoidance, procrastination, shutting down, change in eating, difficulty completing daily tasks, and racing thoughts. Client completed her own personal warning signs worksheet. Client identified her top three crisis warning signs to be having an ?I don?t care? attitude, eating less, and sleeping ?way more.? Benefited from group by increasing awareness of crisis and personal warning signs. Progress noted as client reports increased self-awareness and states applying coping skills learned during group. Will continue IOP to prevent decompensation and improve mood stability.
--- NOTE | 2019-03-10 11:43 | PCM.BH.PN ---
Progress Note Progress Note: Subjective: Patient is a 18-year-old single female with a history of major depressive disorder and generalized anxiety disorder who is currently in the [facility]. She is progressing well and has made progress in the partial hospitalization program. Today she states that she feels that she is doing well overall. She feels better about herself. Her mood is much better and less depression is present. She denies any suicidal thoughts although the staff said she had admitted to some fleeting thoughts which were passive lately. Her anxiety is manageable and no severe anxiety now. She is currently living by herself in an apartment and she states that when she visits her parents and is with her sister's cat her anxiety is vastly improved. She feels that if she could get a an animal for anxiety that could help her calm down she would do much better. He continues to have financial stress and is working a lot. Says her energy level might be a little better but she still has some decreased energy. Objective: Patient is a 18-year-old female, casually dressed and groomed with good hygiene. She has no psychomotor agitation or retardation. She is cooperative during the interview. She has normal speech rate and rhythm with no pressure. Mood is depressed mild to moderate. Affect is constricted but at times is full and normal during the interview. Thought processes organized and goal-directed. Thought content: No evidence of active suicidal ideation. No plan no homicidal ideation no evidence of hallucinations or delusions. Concentration: Normal judgment is not intact. Impression: Major depressive disorder recurrent severe without psychosis, generalized anxiety disorder, primary support and financial issues Plan: The patient will continue her current medication regimen of Zoloft 50 mg p.o. daily and no changes will be made to her medications today. The patient has improved to the point that she is able to step down to the IOP program. This is based on my interview with the patient, chart examination, and discussion with staff. We will look into possibly recommending the patient for a therapy animal to help with her anxiety especially when living alone. We will recommend a therapy cat as opposed to a dog because the patient has a demanding work schedule and we feel that a new puppy would be too stressful for her with her full work schedule. The patient is able to contract for safety and if she feels unable to at any time she will let us know or go to the emergency room. She will continue to participate in the IOP program as she still requires structure, support and education to prevent exacerbation and need for hospital admission.
--- NOTE | 2019-03-10 11:59 | BH.DR.ITP ---
Initial Treatment Plan - Patient Information Visit Information: ADMISSION DATE: EXPECTED LOS: 4-6 weeks - Problems/Symptoms Problem #1:: Depression Symptom:: Sad mood, negative rumination Problem #2:: Anxiety disorder Symptom:: panic feelings, mind races
--- NOTE | 2019-03-15 09:06 | BH.SGPN.GN ---
Behaviors/Verbalizations/Mental Status: [Eye contact is good. Motor activity is appropriate. Appearance is casual. Speech is Appropriate. Mood is dysthymic. Affect is congruent. Thoughts are linear and logical. No evidence of psychosis. Reviewed daily check in sheet and no reports of suicidal ideations or intent.] Client Response/Progress/Benefit: [Pt was an active participant in group discussion. Emotion for today is tired due to getting little sleep last night. Identified some mental health wins as spending time with friends more consistently and setting aside time for her own personal self-care practices as well. States that she continues to take small steps to improve self-confidence such as painting her nails. Reports having issues with a co-worker and is ?trying to ignore it? but that she feels this is impacting her job. Discussed frustrations that her boss seems to dismiss her concerns. Willing to work to identify calming skills she could use as well as motivational statements to remind self of. Benefited from group support and encouragement. Progress in self-report of skill application via socialization. Will continue in IOP to prevent decompensation, improve daily functioning, reduce anxiety.] Narrative Note: []
--- NOTE | 2019-03-15 09:26 | BH.MDN_ITS ---
Multi-Disciplinary Note - Note 60-min Individual Time Started:: 10:08 Date: 03/15/19 Purpose of session/treatment goals addressed:: Purpose of this session was to assess current symptoms, stressors, and progress in PHP tx. Another purpose was to aid pt in processing practicing self-compassion regarding a recent decision impacting her mental health and self-esteem. Eye Contact:: Fair Motor Activity:: Appropriate Appearance:: Disheveled Speech:: Appropriate Mood:: Anxious, Depressed Affect:: Congruent Thoughts:: Linear, Logical, No evidence of hallucinations/delusions noted Staff Interventions:: Asked open-ended and furthering questions to elicit i nformation regarding current sx, stressors, and progress in treatment. Provided empathic responses and supportive feedback as pt discussed emotions of guilt, shame associated with impulsive decision she recently reports making. Assisted pt in applying CBT for challenging and reframing self-deprecating thoughts. Utilized NC techniques to promote change behaviors and prevent further regression. Client Response:: Pt reports feeling depressed and overwhelmingly anxious. Indicated that this was due to making an impulsive decision over the weekend and is struggling with embarrassment and self-hatred as a result. Pt explained that she had sent a revealing photo to someone when feeling lonely and self- conscious. Indicated that in the moment she had believed this would make her feel better about herself and more attractive. Able to see now that this only negatively impacted self-esteem and resulted in increased self-deprecation. Spend remainder of session working with therapist to challenge deprecating thoughts and identify self-compassionate ways for reframing. Discussed healthy strategies for pt to improve self-esteem when feeling unattractive or self- conscious to prevent similar impulsive or self-destructive behaviors in the future. Reports she can play the flute, text her supports, and identify personal strengths such as ?I am a good listener and friend?. Risks/Concerns:: Denies current SI, plan, or intent as of this date 03/15/19. No current access to firearms or large stockpiles of medication. Future oriented and indicates ability to maintain safety. Progress Toward Goals/Plan:: Some regression. Pt indicated making impulsive decision over the weekend which impacted her own self-esteem and leading to increased depression and self-deprecation. Displaying insight into how to manage moments of low self-esteem in future rather than resort back to similar unhealthy behaviors. Increased anxiety as a result. Pt able to challenge these thoughts and practice improved self-compassion. Recommended continued IOP tx to reduce depression, increase application of healthy coping skills, and prevent decompensation. Time Stopped:: 11:25
--- NOTE | 2019-03-15 11:25 | BH.SGPN.GN ---
Behaviors/Verbalizations/Mental Status: []]Eye contact is fair. Motor activity is appropriate. Appearance is casual. Grooming fair. Speech is Appropriate. Mood is depressed and anxious. Affect is constricted. Thoughts are linear and logical. No evidence of psychosis. Client Response/Progress/Benefit: []Pt attentive throughout, contributed input to discussion. Taking notes throughout and nodding as fellow participants reflected on challenge activity. Engaged in creating own mental health SMART goal and seemed to benefit from developing ways to overcome potential barriers to reaching this goal. Pt identified her SMART goal is to do an activity she enjoys everyday to build her confidence and make her feel good. Pt stated this goal will benefit her by making her feel more confident about herself and improve mood. Pt identifies no time, too busy, no motivation, and being too tired as potential barriers to achieving goal. Pt able to identify several solutions to overcome each potential barrier. Pt to continue IOP to improve healthy coping, increase positive self-talk, and prevent decompensation. Narrative Note: []
--- NOTE | 2019-03-16 09:10 | BH.SGPN.GN ---
Behaviors/Verbalizations/Mental Status: [] Eye contact is good. Motor activity is appropriate. Appearance is casual. Speech is Appropriate. Mood is depressed. Affect is flat. Thoughts are linear and logical. No evidence of psychosis. Reviewed daily check in sheet and no reports of suicidal ideations or intent. Client Response/Progress/Benefit: [] Pt participated at times during the group discussion. Emotion for today is tired. Was able to identify some recent mental health wins. Discussed that her BF has moved back in with her. Group provided feedback and some concern as BF previous behaviors and treatment led to psychiatric hospitalization. Pt reports he broke up with me so I could get help for my mental health. Group was supportive however encouraged her to be careful. Stress related to her jobs as part-time job is requesting her to work more hours. Gets upset however insight that she can simply decline. Limited progress noted. Benefited from group feedback, support, and encouragement. Will continue in IOP to maintain safety, increase healthy coping, and prevent decompensation. Narrative Note: []
--- NOTE | 2019-03-16 10:10 | BH.SGPN.GN ---
Behaviors/Verbalizations/Mental Status: []Client alert and oriented, casually dressed and groomed. Eye contact good. Motor activity appropriate. Speech within normal limits. Affect flat, mood dysthymic. Thoughts linear, logical, no signs of hallucinations or delusions. Client Response/Progress/Benefit: []Client responded well to session, nodding and taking notes. Client connected with the quote and agreed that mental health growth does not just happen by chance. Client, along with other group members, provided input and suggestions when identifying what internal/external forces are and the impact that these forces have on their mental health. Examples of negative forces included; high expectations, negative thoughts, self-doubt, lack of follow through, unmanaged mental health symptoms, and poor decisions. Client identified reaching out to supports, setting boundaries, using coping skills, taking medication, and self-care as positive forces. The group started, but they did not finish the activity. Benefited from increased awareness of how different positive and negative forces impact mental health. Client has made progress in implementing healthy coping skills since starting IOP, but she continues to report difficulty with consistent application. Will continue IOP tx to increase emotional regulation and healthy coping skills.
--- NOTE | 2019-03-16 11:08 | BH.SGPN.GN ---
Behaviors/Verbalizations/Mental Status: [Client alert and oriented, casually dressed and groomed. Eye contact good. Motor activity appropriate. Speech within normal limits. Affect congruent and mood euthymic. Thoughts linear, logical, no signs of hallucinations or delusions.] Client Response/Progress/Benefit: [Client willing to participate in activity, provided some input at during discussion though remaining a mostly passive participant. She listened attentively to peers and taking notes. Client completed reflection worksheet identifying positive and negative forces impacting life and mental wellness. Client identified positive forces to include: family, therapy, her friends, her pets, positive affirmations, exercise. Client indicated negative forces include: self-doubt, work, finances, and other?s expectations. Client reported she believes she is moving forward towards her goals but would benefit from continued focus on improving self-confidence. Client seemed to benefit from increased awareness of personal positive and negative forces in life and impact they have on mental health and wellness. Client to continue IOP level of care to maintain gains, continue to promote consistent skill application and healthy change behaviors, and prevent decompensation.] Narrative Note: []
--- NOTE | 2019-03-18 09:10 | BH.SGPN.GN ---
Behaviors/Verbalizations/Mental Status: [] Eye contact is good. Motor activity is appropriate. Appearance is casual. Speech is Appropriate. Mood is anxious. Affect is congruent. Thoughts are linear and logical. No evidence of psychosis. Reviewed daily check in sheet and no reports of suicidal ideations or intent. Client Response/Progress/Benefit: [] Pt participated at times during the group discussion. Emotion for today is irritable. She returned to her full-time job yesterday for the first time in a month. Reports increased anxiety however believes that overall her return went well. Was also social with friends yesterday. No overwhelming emotions reported since last IOP session. Transitioning back to full-time work after psychiatric hospitalization. Connected with discussion today on managing emotions related to interaction with other people and not avoiding or isolating due to others. Benefited from group support, feedback, and encouragement. Progress noted per pt report. Will continue in IOP to maintain safety, prevent decompensation, and provided support during transition back to work and home life. Narrative Note: []
--- NOTE | 2019-03-18 11:17 | BH.SGPN.GN ---
Behaviors/Verbalizations/Mental Status: [Eye contact is fair to good. Motor activity is appropriate. Appearance is casual, eyes watering as pt reports issues with contact. Speech is Appropriate, normal rate and soft tone. Mood is euthymic. Affect is congruent. Thoughts are linear and logical. No evidence of psychosis.] Client Response/Progress/Benefit: [Client attentive, engaged during discussion and activity. Contributed to discussion on how the group was successful in the activity because they were encouraging and had growth-mindset thoughts. Client did well to apply cognitive restructuring to reframe previously identified fixed thought. Pt transformed fixed thought from previous group to a growth thought of ?My supports don?t understand my mental health or care? to ?Just because they don?t understand it, doesn?t mean they can?t still help me?. Client participated as the group brainstormed strategies to promote growth-mindset thinking. Client selected the strategy of practicing identifying and reframing negative thoughts to improve growth-mindset thinking. Benefitted from discussing benefits of growth mindset and brainstorming strategies for prompting growth-mindset. Client displaying progress as client reports increased application of healthy coping skills and reduction of mh sx. Will continue IOP tx to prevent decompensation and improve mood stability.] Narrative Note: []
--- NOTE | 2019-03-22 09:05 | BH.SGPN.GN ---
Behaviors/Verbalizations/Mental Status: [Eye contact is fair. Motor activity is appropriate. Appearance is casual, disheveled as pt appearing unbathed. Speech is Appropriate, normal rate and tone. Mood is dysthymic, anxious. Affect is constricted. Thoughts are linear and logical, appears to have some evidence of rumination. No evidence of psychosis. Reviewed daily check in sheet, pt denies any current SI, plan, or intent.] Client Response/Progress/Benefit: [Pt actively listening throughout group discussion, providing limited input however and remained a mostly passive participant. Emotion for today is charisma down which pt indicated is due to an influx of stressors over the weekend. Pt expressed not wanting to go into detail about her stressors as they were more personal than she felt comfortable sharing in the group setting. Pt did well to identify mental health wins she achieved over the weekend despite several stressors and shared completing the laundry she has been putting off and spending time with friends to avoid isolating. Pt ability to successfully cope with stressors without panic is evidence of progress and improved use of healthy coping. Appeared to benefit from areas of progress and support provided by group. Pt recommended continued IOP tx to promote consistent use of healthy change behaviors, reduce ruminations causing depression and anxiety, and prevent decompensation.] Narrative Note: []
--- NOTE | 2019-03-22 11:23 | BH.SGPN.GN ---
Behaviors/Verbalizations/Mental Status: []Client alert and oriented, disheveled appearance. Eye contact fair. Motor activity slowed. Speech within normal limits. Affect flat, mood depressed. Thoughts linear, logical, no signs of hallucinations or delusions Client Response/Progress/Benefit: []Client taking notes and providing feedback to discussion. Client completed fear of failure worksheet and shared with group. Client reported fear of failure has impacted her life in many ways. Client shared fear of failure is keeping client from feeling confident and doing things she once loved. Client identified barriers to overcoming fear of failure which included; lack of self-love, negative self-talk, negative people, feeling overwhelmed, and fear of leaving comfort zone. Client identified things that she can do to overcome fear of failure such as; engaging in self-care, setting small goals, setting a budget, creating a schedule, and focusing on the ?wins.? Client reported her goal this week is to focus on her wins to help overcome fear of failure. Benefited from identifying the impact that fear of failure has had on her life and developing strategies to overcome this. Client showing progress AEB her increased insight, however, client continues to struggle with emotional dysregulation.
--- NOTE | 2019-03-22 15:37 | BH.MDN ---
Multi-Disciplinary Note - Note 45-min Individual Time Started:: 10:52 Date: 03/22/19 Purpose of session/treatment goals addressed:: Purpose of this session was to check-in with pt regarding comments in process group that she is doing worse and address current stressors impacting mental health progress. Another goal was to assist pt in identifying areas within her control and and small steps she may taking in effectively coping with current stressors and ensuring pt basic needs are being met. Eye Contact:: Good Motor Activity:: Appropriate Appearance:: Casual Speech:: Appropriate Mood:: Anxious, Dysthymic Affect:: Congruent Thoughts:: Linear, Logical, No evidence of hallucinations/delusions noted Staff Interventions:: Therapist asked open ended and furthering questions to elicit additional information regarding pt reports of increased sx of depression and anxiety. Provided emotional support and validation regarding pt anxieties related to current stressors. Commended pt on application of positive self-talk applied strengths-based approaches to increase pt self-confidence and motivatio. Utilized NV techniques to elicit change behaviors. Worked with pt to create a small goal for reducing stressors and provided pt with resources for local agencies providing financial and nutritional support. Client Response:: Pt receptive of session, reports that she is beginning to feel overwhelmed by stressors related to meeting basic needs. She became tearful as she discussed not having enough money to pay all of her current bills and fears she will run out of food before being paid again. Pt shared that she was taken be surprise when learning of two unexpected bills and is struggling to figure out how she will pay for everything. She went on to indicate that she is struggling to focus, becoming increasingly anxious, and more hopeless as a result of increased financial obligations. Pt reports she is unable to ask her supports for assistance financially as they do not have the means to do so and is not aware of what agencies have resources available to provide assistance. Pt receptive of discussing local agencies and indicates willingness to go to [facility] or [employer] to apply for financial and nutritional assistance. Pt additionally indicated wanting to have a better understanding of her financial obligations and reports plans to create a personal budget to reduce likelihood that she overspend in other areas before meeting all financial obligations. Pt went on to indicate asking a friend to move in to reduce the monthly rent as well. Indicates that this is a healthy friend who is supportive of pt mental health and will help encourage pt to focus on positives. Additionally, discussed ongoing medical problems contributing to stress levels however is relieved to know she has an appointment to address these issues tomorrow. Able to identify some positives over the weekend which included asking for help at work and advocating for herself, using positive self-talk to manage increased anxiety, as well as spending time with friends rather than isolating. Risks/Concerns:: No risks or concerns noted. Denies active suicidal ideations, plan, or intent. Protective factors is her family and future. Future-oriented stating plans to go to parents home this evening. Progress Toward Goals/Plan:: Slight progress over the weekend, however reports struggling with increased anxiety and hopelessness regarding current financial stressors. Overall progress since starting IOP continues to be inconsistent as pt struggles to apply internal skills of setting healthy boundaries, communicating with supports, and engaging in healthy coping outside of positive self-talk. Continues to display improvement in reframing thoughts as she reports doing this o encourage herself to ask for time off at work and encourage self to follow-through wit scheduled dr. ledesma. Struggles with financia; responsibilities however is improving in area of identifying need to budget rather than avoiding this. Will continue in IOP to maintain safety, improve daily functioning, and prevent decompensation. Time Stopped:: 11:34
--- NOTE | 2019-03-23 09:00 | BH.SGPN.GN ---
Behaviors/Verbalizations/Mental Status: [] Eye contact is good. Motor activity is appropriate. Appearance is casual. Speech is Appropriate. Mood is euthymic. Affect is full. Thoughts are linear and logical. No evidence of psychosis. Reviewed daily check in sheet and no reports of suicidal ideations or intent. Client Response/Progress/Benefit: [] Pt was an active participant in group discussion. Emotion for today is happy. Shared that she reached out to support for some assistance and support was positive and receptive. Shared that it was difficult however necessary for her. Shared some positives regarding her family. She also reports that she is staying focused and complete responsibilities at work and home. Spending time with peers and not isolating. Reports that she is managing her emotions pretty well yesterday and today. Progress noted per pt report. Benefited from group support and encouragement. Participated in group discussion on anger mgmt skills, thoughts stopping, thought challenging, catastrophizing, and setting boundaries. Will continue in IOP to prevent decompensation, increase healthy coping skills, stabilize depression, and provided support. Narrative Note: []
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
== END 2019-03-24 23:59 ==
LOC: BHIOP 09:00
PROVIDERS: Family Provider Nurse Practitioner Family; PCP Nurse Practitioner Family; Referring Provider Psychiatry & Neurology Psychiatry; Visit Provider Psychiatry & Neurology Psychiatry
DX: F33.2 Major depressive disorder, recurrent severe without psychotic features (principal); F41.1 Generalized anxiety disorder; Z79.899 Other long term (current) drug therapy
CPT/HCPCS: H0035; 90834; 90837; 90853

== ENCOUNTER → 2019-03-23 | Outpatient (CLI) | payer BC, OTHER, SELFPAY ==
[2019-03-23 11:39] VITALS: BMI 23.8
[2019-03-23 22:58] LABS: Chlamydia Trachomatis by PCR Negative (Negative); Neisserai gonorrhoeae by PCR Negative (Negative); Probe Check PASS; Sample Adequacy Control PASS; Specimen Processing Control PASS
== END | disposition home or self-care (01) ==
LOC: LABSPEC 17:18
PROVIDERS: Family Provider Nurse Practitioner Family; PCP Nurse Practitioner Family; Referring Provider Nurse Practitioner Women's Health; Visit Provider Nurse Practitioner Women's Health
DX: N89.8 Other specified noninflammatory disorders of vagina (principal); Z11.3 Encounter for screening for infections with a predominantly sexual mode of transmission
CPT/HCPCS: 87070; 87205; 87491; 87591

== ENCOUNTER 2019-03-25 09:00 | Outpatient (RCR) | payer BC, OTHER, SELFPAY ==
[2019-03-23 11:39] VITALS: BMI 23.8
--- NOTE | 2019-03-25 09:10 | BH.SGPN.GN ---
Behaviors/Verbalizations/Mental Status: [] Eye contact is good. Motor activity is appropriate. Appearance is neat. Speech is Appropriate. Mood is depressed/irritable. Affect is flat. Thoughts are linear and logical. No evidence of psychosis. Reviewed daily check in sheet and no reports of suicidal ideations or intent. Client Response/Progress/Benefit: [] Pt was an active participant in group discussion. She shared some recent medical issues which are having a dramatic impact on her depression, anxiety, stress, and overall functioning. Ruminations, catastrophizing, and intrusive thoughts. Pt is fearful about how this medical issues will impact her future. She is anger out her healthcare providers for ignoring her concerns which exacerbated the issue. Group gave some feedback to help with intrusive thoughts and some suggestions for distraction. Tearful stating I have a bad feeling. Able to identify that she can only control what she does on a daily basis and that worrying about future problems is only going to make her emotions more intense. Benefited from group support, encouragement, and feedback. Will continue in IOP to maintain safety, prevent decompensation, and increase coping strategies. Narrative Note: []
--- NOTE | 2019-03-25 10:16 | BH.SGPN.GN ---
Behaviors/Verbalizations/Mental Status: []Client alert and oriented, disheveled appearance, appears in physical discomfort. Eye contact good. Motor activity appropriate. Speech within normal limits. Affect congruent-portraying discomfort, mood anxious. Thoughts linear, logical, no signs of hallucinations or delusions. Client Response/Progress/Benefit: []Client responded well to session, quiet at first, but then becoming increasingly engaged. Client indicated connecting with the topic of cognitive distortions. Client shared negative thoughts tend to come from personal experiences. Client reported unmanaged, negative automatic thoughts can seriously impact mental health and functioning. Client stated negative thinking can lead to worsened depression symptoms, relationship issues, and isolation. Client did well to work with the group on defining the various types of cognitive distortions and their impact on mental health. Client reported connecting with distortions of overgeneralizing, predicting the future, catastrophizing, personalizing, and labeling. Client reported she has ?blown things way out of proportion? in the past because of negative thinking. Client shared an example of a current catastrophizing thought regarding her health. Appeared to benefit from increasing awareness of cognitive distortions and how they can impact emotions and behaviors. Client continues show strides in gaining awareness, but she continues to struggle with consistently applying healthy coping skills to manage symptoms. Will continue IOP to prevent decompensation and improve emotional regulation.
--- NOTE | 2019-03-25 11:58 | BH.COMM ---
Communication Note - Communication with Client Communication Note: Pt requested to meet with this therapist as she indicated being in a lot of physical pain due to a yeast infection that had been untreated until recently and become progressively worse. Pt shared her pain has resulted in increased distorted thinking, specifically thoughts that she will no longer be able to have children as a result of the untreated infection. Pt did well to work with therapist on challenging these thoughts and identifying what is in her control regarding the situation. Pt identified that she can control whether she reaches out for help and how she nitin. Pt identified positive ways to manage pain this weekend such as using a heating pad and colorng as well as spending time with friends to reduce isolation and prevent rumination. Pt receptive of contacting gynecology for a consult.
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
--- NOTE | 2019-03-29 10:18 | BH.SGPN.GN ---
Behaviors/Verbalizations/Mental Status: []Client alert and oriented, casually dressed and groomed. Eye contact good. Motor activity appropriate. Speech within normal limits. Affect flat, mood dysthymic. Thoughts linear, logical, no signs of hallucinations or delusions. Client Response/Progress/Benefit: []Client was an active participant and provided a personal example from quote discussion. Attentive and engaged during discussion of how emotions and negative thinking impact ability to change. Client reported the anxiety one feels associated with change can cause a person to give up before making the change. Worked with the group to identify benefits to making changes in our lives which included; feeling accomplished, improved self-esteem, improved mental health, better coping skills, and feeling stronger. Group then identified barriers to change or what keeps us from making changes which included; negative thinking, unmanaged mental health symptoms, fear of the unknown, anxiety, fear of failure, insecurity, lack of motivation, and ambivalence. Client participated along with group in activity where they identified and discussed the emotions related to change. Benefited from increased awareness and understanding of emotions, benefits, and barriers related to change. Client continues to show progress as shown by her ongoing report of no suicidal ideation and application of in the moment coping skills at work. However, client can continue to benefit from IOP to prevent decompensation and increase emotional regulation skills.
--- NOTE | 2019-03-29 11:20 | BH.SGPN.GN ---
Behaviors/Verbalizations/Mental Status: [Eye contact good. Motor activity is appropriate. Appearance is casual. Speech is appropriate rate and tone. Mood is euthymic. Affect is congruent with mood. Thoughts are linear and logical. No evidence of psychosis.] Client Response/Progress/Benefit: [Client receptive to session, mostly attentive and providing some insight to discussion. At times Client struggling to maintain attention AEB looking at phone throughout. Client participated in the activity and processed emotions and barriers associated with making change. Client appeared to connect with discussion on weighing the pros and cons associated with change and benefited from learning to do so through use of decisional balance sheet. Identified a change she would like to make to improve mental health as: improving application of self-care practices. Client reported potential benefits of change as: decreasing anxiety and depression, improving her mood, and increased self-confidence. While the costs of not making the change included: continued depression, feeling nervous about reaching out to others, and ?staying stuck?. Progress noted in ability to identify how making this change may promote additional healthy behaviors and thinking patterns. Recommended continued IOP to continue to promote use of healthy coping skills and improve interpersonal effectiveness skills.] Narrative Note: []
--- NOTE | 2019-03-30 09:03 | BH.SGPN.GN ---
Behaviors/Verbalizations/Mental Status: []Client alert and oriented, disheveled appearance. Eye contact good. Motor activity appropriate. Speech within normal limits. Affect incongruent-smiling but reporting anxiety, mood anxious. Thoughts linear, logical, no signs of hallucinations or delusions. Reviewed client?s symptom tracker, no risk for suicidal ideation, plan, or intent as of 03/30/19. Client Response/Progress/Benefit: []Client responded well to session, attentive throughout. Client reports feeling ?overwhelmed and anxious? today. Client able to identify her ultrasound as the trigger for her increased anxiety. Client able to recognize she endorses numerous catastrophizing distortions because of her anxiety. The group helped client identify and reframe her distortions. Client identified mental wins today which included getting approved for an emotional support animal and coming to [facility] for emotional support. Appeared to benefit from in the moment thought challenging. Will continue IOP tx as client continues to struggle with mood instability that is often situational.?
--- NOTE | 2019-03-30 10:08 | BH.SGPN.GN ---
Behaviors/Verbalizations/Mental Status: [Client alert and oriented, casually dressed and groomed. Eye contact fair to good. Motor activity appropriate. Speech within normal limits. Affect congruent, mood anxious, euthymic. Thoughts linear, logical, no signs of hallucinations or delusions.] Client Response/Progress/Benefit: [Client remained a mostly active participant during group AEB client contributing to discussion, asking questions and making connections throughout. Client reported it is important to have a variety of social supports and shared that her family acted as a safety net for her when she began ?going through all this? indicating her mental health struggles. Client helped group brainstorm potential consequences of not having a support system and barriers to developing social supports, which included: feeling like a burden, lack of effective communication, anxiety, and not knowing where/how to find healthy supports, struggling to set boundaries with unhealthy supports. Group identified benefits of social support as: encouraging us, increased motivation, less loneliness, different perspective, help us challenge ?what if? thoughts, ?keep you grounded?, and accountability. Client reported when she feels supported, she feels ?less alone?. Client took an active during the group activity and was providing positive encouragement as well as open to feedback from others. Appeared to benefit from gaining awareness of barriers that keep people from seeking social support as well as identifying the benefits of increasing support. Client progressing AEB client being actively engaged in group and able to make personal connections. Will continue IOP tx to reduce depression and anxiety, improve symptom management and healthy communication, maintain safety, and prevent decompensation.] Narrative Note: []
--- NOTE | 2019-03-30 11:20 | BH.SGPN.GN ---
Behaviors/Verbalizations/Mental Status: []Eye contact is good. Motor activity is appropriate. Appearance is casual, appropriate grooming. Speech is Appropriate. Mood is dysthymic and anxious. Affect is constricted. Thoughts are linear and logical. No evidence of psychosis. Client Response/Progress/Benefit: []Client responded well to session, contributed thoughts at times during discussion and listened attentively to peers. Client helped the group discuss and identify different social supports as well as the benefits of different supports. The group identified examples of personal, self-help, professional, spiritual, and co-worker social supports. Group identified benefits of each type of social support. Client reported she wants to improve her spiritual and faith type of support because it will give her opportunity to connect with others and learn different viewpoints. Client appeared to benefit from increasing understanding of different types of social support and identifying ways she can improve. Client continues to struggle with consistent application of healthy coping skills which seems to be hindrance to treatment progress. Client to continue IOP to prevent decompensation, increase use of coping skills, and challenge anxious thought patterns. Narrative Note: []
--- NOTE | 2019-03-30 15:28 | BH.MDN_ITS ---
Multi-Disciplinary Note - Note 30-min Individual Time Started:: 08:31 Date: 03/30/19 Purpose of session/treatment goals addressed:: Purpose of session was to assess current sx, stressors, and tx goal progress. Completed tx plan review and identified areas for continued focus. Another purpose was to focus on reviewing and reinforcing healthy coping during stressful times and increasing consistency of skill application. Eye Contact:: Good Motor Activity:: Appropriate Appearance:: Casual Mood:: Euthymic Affect:: Congruent Thoughts:: Linear, Logical, No evidence of hallucinations/delusions noted Staff Interventions:: Therapist asked open ended questions to elicit client's th oughts and feelings about tx progress and areas for continued growth. Therapist provided support by using active listening and validating emotions. Utilized MA techniques to promote ongoing change behaviors. Client Response:: Client receptive of session, reported she has noticed her mood is improving overall and attributes this to beginning to increase in consistency of application of positive self-talk and challenging negative thoughts when they occur. Completed DSM-5 analysis to assess tx midpoint progress. Pt self- reflected that she has seen progress in areas of anxiety and depression and noted that she has had fewer moments of panic and feels more confident in completing occupational duies as a result. Pt identified areas she feels she is still struggling to include self-esteem, communication, consistent self-care, and boundary setting. Identified finances as ongoing stressor, but reports plans to seek support from her parents until able to improve financial situation. Discussed small goals focused on these areas to work towards for remainder of time in IOP. Risks/Concerns:: Pt denies suicidal thoughts, plan or intention to date, 03/30/19. Progress Toward Goals/Plan:: Progress noted as evidenced by reduction in DSM cross-cutting scores, see tx review. Additionally, pt self reports reduction of anxiety and depression, able to recognize negative thinking patterns with improved ability to focus on the positives. Plan is to continue IOP to maintain gains and stabilize mood, as well as prevent decompensation. Time Stopped:: 09:03
--- NOTE | 2019-03-30 15:29 | BH.MTP_ITS ---
Treatment Plan Review Date of Admission:: 03/09/19 Date of Treatment Plan Review:: 03/30/19 Admitting Diagnoses:: Major depressive disorder recurrent severe without psychosis, generalized anxiety disorder. Current Diagnoses:: Major depressive disorder recurrent severe without psychosis, generalized anxiety disorder. Patient's Response to Treatment:: Since beginning the IOP tx program, Pt has displayed variable levels of engagement in the treatment process. Pt has maintained inconsistent attendance, often canceling due to sickness or other appointments and at times leaving earlier than end of group. Pt has done well to remain a mostly active participant in both individual and group sessions, though often struggles with attention. At times she is able to make connections with material presented; however has struggled in application and motivation in daily life. Pt has remained consistent with psychiatric medication compliance. Status of Current Problems and Symptoms: Pt has made some progress in treatment which is evidenced indication of reduced symptoms, some increase in engagement, as well as self-report. Pt reports some decreased use of avoidance or isolation when having an intrusive thoughts, reaching out more to supports, and is less likely to escalate to crisis; however, could continue to benefit from working on this area. Additionally, pt has seen a reduction in panic attacks, as well as severity and duration of anxious thinking. She indicates fewer periods of time spent isolating to avoid, better use of healthy calming and regulation skills in times of distress and continues to work on challenging distorted thought patterns through use of affirmations. Pt has displayed consistent difficulties in actively utilizing self-care practices when struggling with an intrusive thoughts and often externalizes which could be contributing to stress levels and ongoing anxiety Problem #1 Problem Name:: Depression Status of Goals:: Partially complete. Pt is making progress on this objective. Obj 1-She is able to identify triggers for depression and self-care skills to improve overall mood and reduce sx; however continues to struggle with c onsistent skill application, motivation, and prioritization. Team Recommendations:: Client encouraged to continue working on this treatment goal to reinforce healthy coping skills and continue to further decrease symptoms of depression. Client and therapist currently working on thought challenging and practicing self-care skills. Will continue IOP tx to maintain gains and continue to decrease depression related sx. Problem #2 Problem Name:: Anxiety Status of Goals:: Partially complete. Pt continues to make strides in reduction of anxiety sx, though has difficulties with consistency and ongoing struggles in thought challenging in times of distress or unexpected changes. Obj 1- Pt reports awareness of anxiety triggers and warning signs however struggles with application of calming skills when experiencing increased sx. Pt still needs some work in this area. Team Recommendations:: Client encouraged to continue working on this treatment goal to reinforce healthy coping skills and continue to further decrease symptoms of anxiety and reduce rumination. Client and therapist currently working on thought challenging and practicing calming skills. Will continue IOP tx to maintain gains and continue to decrease anxiety
--- NOTE | 2019-04-01 09:03 | BH.SGPN.GN ---
Behaviors/Verbalizations/Mental Status: []Client alert and oriented, disheveled appearance. Eye contact fair. Motor activity appropriate. Speech within normal limits. Affect incongruent-smiling and laughing but reporting anxiety and pain, mood anxious. Thoughts linear, logical, no signs of hallucinations or delusions. Reviewed client?s symptom tracker, no risk for suicidal ideation, plan, or intent as of 04/01/19. Client Response/Progress/Benefit: []Client responded well to session, receptive to feedback from peers. Client reports feeling ?tired, anxious, overwhelmed? today. Client continues to struggle with medical issues, and she had an ultrasound this morning. Client reports fear that the worst-case scenario will happen to her. Client receptive to thought challenging as client recognized she was using catastrophizing and predicting the future. Client acknowledged getting through her appointment this morning as a mental health win. Client unable to identify coping skills that helped her manage anxiety this morning. Client stated she is worried about her anxiety throughout the day as client does not get her ultrasound results until tomorrow. Client unable to identify coping skills that could help her today, but she was receptive to ideas from peers. Client appeared to benefit from group support and in the moment thought challenging. Progress variable as client has shown strides towards managing her symptoms, but she currently reports a regression in anxiety and limited application of coping skills.
--- NOTE | 2019-04-01 10:10 | BH.SGPN.GN ---
Behaviors/Verbalizations/Mental Status: []Client alert and oriented, disheveled appearance. Eye contact good. Motor activity slowed. Speech within normal limits. Affect flat, mood dysthymic, anxious. Thoughts linear, logical, no signs of hallucinations or delusions. Client Response/Progress/Benefit: []Client was somewhat engaged during session, providing to discussion occasionally, but declining to participate in activity. Client reported self-care is not always fun, sometimes self-care means ?going to your Dr. appointments.? Client listened to the discussion of the common myths about self-care including self-care is selfish, easy, something one does alone, just personal hygiene, and always fun. Attentive during examples of self-care activities such as boundary setting, paying bills, and getting rid of unhealthy coping skills. Client agreed with peers that if one does not engage in self-care it will likely result in being overwhelmed, burnout, and more depressed. Client declined to engage in activity, but able to connect that self-care requires balance and setting boundaries. Client seemed to benefit from increased awareness of the importance of self-care. Client continue to show mild-moderate progress as she reports inconsistent application of coping skills and ongoing medical stressors. Will continue IOP to prevent decompensation and improve emotional regulation.
--- NOTE | 2019-04-01 11:15 | BH.SGPN.GN ---
Behaviors/Verbalizations/Mental Status: [Client alert and oriented, casually dressed and appropriate groomed. Eye contact good. Motor activity appropriate. Speech within normal limits. Affect congruent, mood euthymic. Thoughts linear, logical, no signs of hallucinations or delusions. ] Client Response/Progress/Benefit: [Client receptive of session, actively listening and providing some contributions to discussion. Willing to complete worksheet activity. Participated as the group further processed the activity and connected with the importance of self-care in maintaining mental health and promoting balance. Client completed self-assessment activity on the different areas of self-care and was able to identify current practices she uses and areas she would benefit to improve upon. Client reported she can improve her physical and emotional self-care. Client set a goal to improve in the area of emotional self-care. Client?s goal is to practice using affirmations and journaling to improve confidence levels. Client shared this would benefit client because client has struggled with self-doubt and negative self-talk that reinforces anxiety and depression. Client appeared to benefit from increasing awareness of how she can improve her self-care balance. Progress noted as client has been able to manage her distorted thoughts more effectively. Will continue IOP tx to promote gains and to further improve daily functioning.] Narrative Note: []
--- NOTE | 2019-04-05 15:46 | BH.MDN_ITS ---
Multi-Disciplinary Note - Note 30-min Individual Time Started:: 09:48 Date: 04/05/19 Purpose of session/treatment goals addressed:: Purpose of session was to assess current sx, stressors, and tx goal progress. Another purpose was to aid pt in easing anxiety and challenge distorted thoughts, specifically catastrophizing, regarding current medical related stressor. Eye Contact:: Good Motor Activity:: Appropriate Appearance:: Disheveled Speech:: Appropriate Mood:: Anxious, Irritable, Dysthymic Affect:: Congruent Thoughts:: Linear, Logical, No evidence of hallucinations/delusions noted Staff Interventions:: Therapist asked open ended and furthering questions to elicit additional information regarding pt current thoughts on symptoms, stressors, and treatment goal progress. Therapist provided support by using active listening and validating emotions as pt discussed recent stressor. Challenged distorted thought patterns and Utilized SC techniques via decisional balance to promote ongoing change behaviors and continue to reduce anxiety related sx. Client Response:: Client receptive of session, engaged throughout. Pt reported she has noticed her mood is being impacted by ongoing medical related problems. Discussed going to the creasing machine operator to for clarity and to have questions regarding current health related symptoms address, however found the results of her ultrasound to be inconclusive. Shared feeling frustrated as she is physically in pain and feels her concerns are not being taken as seriously as she would like. Pt went on to discuss fears that he current medical issues could lead to infertility or other long-term effects. Therapist challenged pt on use of catastrophic thinking as pt denies having any evidence these concerns are realistic. Receptive of identifying positive self-talk statement she may use to reduce anxious thoughts when recognizing them. Indicated being in physical pain today and wanting to leave group to go home and rest. Discussed pros and cons of leaving group vs staying. Identified she will refrain from isolating if she leaves by having a friend come over to spend time with her. Identified self-care practices she may implement which as well include showering prior to work and making a healthy lunch. Risks/Concerns:: Pt denies suicidal thoughts, plan or intention to date, 04/05/19. Progress Toward Goals/Plan:: Progress limited as pt discussed increased sx of anxiety, agitation, urges to isolate due to a recent medical trigger. Indicated that this has led her to want to sleep more and avoid people as the pain causes increased irritability. Reports inconsistent application of emotion regulation skills and mindfulness. Continues to struggle with follow-through during times of increased stress/anxiety hich may be impacting progress. Plan is to continue to promote application of healthy skills identified and stabilize mood, as well as reduce anxiety and prevent decompensation. Time Stopped:: 10:16
--- NOTE | 2019-04-06 09:00 | BH.SGPN.GN ---
Behaviors/Verbalizations/Mental Status: [] Eye contact is good. Motor activity is appropriate. Appearance is neat. Speech is Appropriate. Mood is depressed. Affect is flat. Thoughts are linear and logical. No evidence of psychosis. Reviewed daily check in sheet and no reports of suicidal ideations or intent. Client Response/Progress/Benefit: [] Pt was an active participant in group discussion. Shared that she spent a great deal of time with supports yesterday. Pain continues to be a stressor which is impacting her mood and work. Upcoming appt with PCP to look further into causes. Utilizing supports and reports that her emotions are ok. Numerous psychosocial stressors including medical, vocational, and financial however denies any overwhelming depression, SI, or significant distress. Progress noted as she reports today she is managing her life well. Benefited from group support, encouragement, and feedback. Will continue in IOP to prevent decompensation, increase healthy coping skills, and improve daily functioning. Narrative Note: []
--- NOTE | 2019-04-06 10:15 | BH.SGPN.GN ---
Behaviors/Verbalizations/Mental Status: []Client alert and oriented, casually dressed and groomed. Eye contact good. Motor activity appropriate. Speech within normal limits. Affect congruent, mood euthymic. Thoughts linear, logical, no signs of hallucinations or delusions. Client Response/Progress/Benefit: []Client attentive and engaged throughout session. Client connected with the quote and shared ?there?s so much conflict? and that when she handles conflict poorly ?I feel worthless.? Worked together with the group to define and identify differences between internal and external conflict. Group identified and discussed the benefits of addressing internal/external conflict which includes; not letting emotions stockpile, preventing further issues, and bettering mental health. Client worked with group to identify barriers to overcoming conflict which included; self-sabotage, poor emotional regulation, ?going off on people,? manipulation, avoidance, self-blame, and negative thinking. Attentive during psychoeducation on different conflict styles such as avoiding, accommodating, competing, and collaborative. The group began to review benefits and drawbacks to each style and client provided insight to discussion. Benefited as she was able to identify and define conflict as well as increase awareness of how conflict style impacts mental health. Progress noted in client?s increased engagement in group today. Client continues to struggle with maintaining mood stability and consistently applying coping skills.
--- NOTE | 2019-04-06 11:16 | BH.SGPN.GN ---
Behaviors/Verbalizations/Mental Status: [Client alert and oriented, casually dressed though appearing unbathed. Eye contact good. Motor activity appropriate. Speech within normal limits. Affect congruent to topic being discussed, mood euthymic. Thoughts linear and logical, no signs of hallucinations or delusions.] Client Response/Progress/Benefit: [Pt responded well to session, providing some input and appeared to be listening throughout. She did well to work with the group on identifying the various characteristics, potential drawbacks and benefits of the conflict resolution styles not reviewed in previous group. Pt indicated connecting most with the ?avoiding? and ?accommodating? approaches to conflict. She identified that although this is what she is often drawn to, it has unhealthy effects on her overall mental health and prevents conflicts from being resolved. Pt appeared to benefit from increasing awareness of her personal conflict resolution style and from learning ways to increase healthy conflict resolution. Pt reports plans to talk to healthy supports more frequently when initially frustrated or upset to reduce likelihood of conflict escalating or pt avoiding. Pt progress noted in increased insight and pt reflection on how her behaviors impact prevent progress towards healthy conflict resolution. Despite pt progress with regard to insight, she continues to struggle in identifying and following through with steps to reduce avoidance and cope with anxiety in more constructive ways. Recommended continued IOP tx to improve emotion regulation skills, promote healthy change behaviors, as well as prevent decompensation. ] Narrative Note: []
--- NOTE | 2019-04-08 09:00 | BH.SGPN.GN ---
Behaviors/Verbalizations/Mental Status: [] Eye contact is good. Motor activity is appropriate. Appearance is neat. Speech is Appropriate. Mood is tired. Affect is flat. Thoughts are linear and logical. No evidence of psychosis. Reviewed daily check in sheet and no reports of suicidal ideations or intent. Client Response/Progress/Benefit: [] Pt participated when prompted. Shared that her emotion for today is tired. Discussed some stressors involving relationships and finances. Group allowed her to vent. Despite stressors she reports minimal mental health symptoms and appears that be managing her stressors well. Utilizing skills and functioning close to baseline. Smiling and interacting well with peers. Progress noted. Benefited from group support, encouragment, and feedback. Will continue in IOP to maintain gains and prevent decompensation. Plan to discharge next week. Narrative Note: []
--- NOTE | 2019-04-08 10:00 | BH.SGPN.GN ---
Behaviors/Verbalizations/Mental Status: []Eye contact is good. Motor activity is appropriate. Appearance is causal. Speech is Appropriate. Mood is anxious. Affect is constricted. Thoughts are linear and logical. No evidence of psychosis. Client Response/Progress/Benefit: []Pt responded well to session AEB pt listening attentively to others and contributing to discussion at times. Pt connected with peers during discussion about common unhealthy skills that are often used to manage stressors and mental health. Pt initially attributed having too many stressors to why she struggles, but with future discussion recognized the impact how she nitin with her stressors/problems is just as important. Pt stated she often uses sleep, stress eating, and avoidance as unhealthy coping skills. Worked with group to identify the following strategies to be helpful with increasing healthy coping skills: self-awareness, stopping self and using healthy skill, practicing new skills, and motivation. Pt able to make connections when processing group activity about importance of creating a stable base of healthy coping skills. Pt seemed to benefit from increased awareness of benefits of using healthy coping skills and understanding importance of having balance between internal and external coping skills. Pt to continue IOP level of care to maintain safety, increase healthy coping skills, and prevent decompensation. Narrative Note: []
--- NOTE | 2019-04-08 11:02 | BH.SGPN.GN ---
Behaviors/Verbalizations/Mental Status: []Client alert and oriented, casually dressed and groomed. Eye contact good. Motor activity appropriate. Speech within normal limits. Affect constricted, mood dysthymic. Thoughts linear, logical, no signs of hallucinations or delusions. Client Response/Progress/Benefit: []Client responded well to session, attentive throughout and providing ideas during group brainstorming. Client appeared to connect with the activity from second group and helped the group identify benefits of having a strong foundation of internal and external coping skills. Client helped the group discuss the different categories of coping skills and provided examples. Client reported it is important to have a variety of coping skills ?because you don?t just want to distract.? Client created a coping skills ?menu? for the five categories of coping skills. Client selected recognizing wins, opposite action, yoga, earthing, getting an emotional support animal, watching funny videos, and maintain her self-care routine as her coping skills to try. Client appeared to benefit from increasing her repertoire of healthy coping skills. Progress noted in client?s increased engagement during session. Client to continue IOP to prevent decompensation and improve mood stability.
--- NOTE | 2019-04-12 09:00 | BH.SGPN.GN ---
Behaviors/Verbalizations/Mental Status: [] Eye contact is good. Motor activity is appropriate. Appearance is casual. Speech is Appropriate. Mood is depressed. Affect is flat. Thoughts are linear and logical. No evidence of psychosis. Reviewed daily check in sheet and no reports of suicidal ideations or intent. Client Response/Progress/Benefit: [] Pt was an active participant in group discussion. Shared with the group that today's date has a negative correlation with her past as today is her bio-mother's b-day. Discussed that today reminds her of bad memories and the current relationship that she has with her mother. They are estranged and pt has no intention of working on this relationship. Group provided feedback regarding ways that others manage anniversary dates. Other stressors include a conflict with her roommate. Notes increased anxiety, stress, and negative thoughts however denies being overwhelmed. Utilizes skills and support at times. Benefited from group support, encouragement, and feedback. Will continue in IOP to maintain safety, increase coping skills, and prevent decompensation. Narrative Note: []
--- NOTE | 2019-04-12 11:14 | BH.SGPN.GN ---
Behaviors/Verbalizations/Mental Status: []Client alert and oriented, disheveled appearance. Eye contact good. Motor activity appropriate. Speech within normal limits. Affect congruent, mood dysthymic. Thoughts linear, logical, no signs of hallucinations or delusions. Client Response/Progress/Benefit: []Client responded somewhat well to session, quiet, but participating when prompted. Group identified the benefits of addressing stigma which included; increased self-confidence, feeling accepted, improved relationships, and less self-deprecation. Client helped the group identify thoughts and behaviors people engage in that reinforce stigma. Client reported she uses her symptoms as an excuse not to open up to people which reinforces stigma in her life. Group brainstormed strategies to combat social and perceived stigma which included; talking to supports, practicing positive self-talk, not using labeling language, and providing psychoeducation. Client reported she will practice advocating for herself to combat stigma. Appeared to benefit from increasing awareness of ways he reinforces stigma and how to combat stigma. Will continue IOP tx to increase consistent use of healthy coping skills and promote mood stability.
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
--- NOTE | 2019-04-13 09:10 | BH.SGPN.GN ---
Behaviors/Verbalizations/Mental Status: [] Eye contact is good. Motor activity is appropriate. Appearance is casual. Speech is Appropriate. Mood is anxious. Affect is congruent. Thoughts are linear and logical. No evidence of psychosis. Reviewed daily check in sheet and no reports of suicidal ideations or intent. Client Response/Progress/Benefit: [] Pt spoke when prompted. Emotion for today is anxious. Shared with the group that she had an anxiety attacks yesterday. Did not identify the trigger. Reports that it lasted 10 minutes which she notes is shorter than in the past. Notes that she went to her room where she had some affirmations posted on the wall as well as her notes on coping plans which she reports was helpful. Reports stress and anxiety about work, finances, and some struggles with her roommate. She is addressing these stressors rather than avoiding them. Finalized her aftercare with counseling and psychiatry. Progress is stable. Will continues in IOP to prevent decompensation, maintain safety, and increase coping skills. Narrative Note: []
--- NOTE | 2019-04-13 10:07 | BH.SGPN.GN ---
Behaviors/Verbalizations/Mental Status: []Client alert and oriented, disheveled appearance. Eye contact fair. Motor activity appropriate. Speech within normal limits. Affect congruent, mood anxious and depressed. Thoughts linear, logical, no signs of hallucinations or delusions. Client Response/Progress/Benefit: []Pt receptive to session, provided input and actively listening throughout discussion on stress. Able to brainstorm with the group positive and negative aspects of stress on physical and mental health. She participated in identifying current stressors impacting mental health. Pt's current stressors include: health situations, financial problems, family fighting, roommate/friends, and work problems. Pt noted that her most significant stressors are currently money and health problems. Appeared to benefit from gaining awareness of own current stressors and learning about the impact stress has on overall wellbeing. Progress noted in improved ability to identify impact of current stressors on mental health and wellbeing. Recommend continued IOP tx to improve anxiety and depression symptom management, improve utilization of healthy coping, and prevent decompensation. Narrative Note: []
--- NOTE | 2019-04-13 11:09 | BH.SGPN.GN ---
Behaviors/Verbalizations/Mental Status: [Client alert and oriented, casual appearance and appropriate grooming. Eye contact fair to good. Motor activity appropriate. Speech within normal limits. Affect congruent, mood dysthymic. Thoughts linear, logical, no signs of hallucinations or delusions.] Client Response/Progress/Benefit: [Pt engaged in session as evidenced by pt listening and taking notes, participating in activity, and providing input throughout session. Pt worked with the group to complete the challenge activity and did well to remain engaged while being challenged to manage in the moment stressors. Pt was able to identify barriers encountered that may also impact managing stress in daily life, indicating that frustration momentarily led client to want to give up or quit. Pt actively listening during discussion about the 4 A's of managing stress. Expressed wanting to utilize avoid in order to prevent ?putting too much on my plate or hanging out with negative supports?. Pt seemed to benefit from increased awareness of the impact of stress on mental health and increasing repertoire of stress management strategies. Pt to continue in IOP to prevent decompensation, continue promote use of healthy coping and thought challenging skills, and decrease symptoms of depression.] Narrative Note: []
--- NOTE | 2019-04-15 08:14 | BH.DS ---
Discharge Summary - Demographics Date of Admission:: 03/09/19 Discharge Date: 04/15/19 Presenting Problems at Admission:: Client is a 18 y/o female who completed the Behavioral Health PHP program on 03/08/19 following inpatient psychiatric hospitalization. Pt was hospitalized at [facility] February 22 - February 25 following suicide attempt via overdose. At time of attempt, pt reports taking 14 ibuprofen following a breakup on February 17. Pt reports a hx of depression and anxiety and has had 2 previous suicide attempts occurring in 2017 and 2018 via overdose. At time of admission, pt reports some decrease in mental health sx since completing the PHP program, however continued to indicate ongoing depression and anxiety exacerbated by several financial stressors, isolation, and work-related stress. At IOP admission, client endorsed a depressed mood, mild anhedonia, hopelessness, and low self-esteem. Client also endorsed ruminative anxiety most often surrounding the workplace and finances, reports decreased panic attacks though continues to experience them on an infrequent basis. She denies a history of self-harm. For primary support she reports she has friends and her family, however at times indicates family as increasing anxiety due to yelling or limited understanding of pt mental health. Discharge Diagnoses:: Major depressive disorder recurrent severe without psychosis F33.2, generalized anxiety disorder Reason for Discharge:: Client has shown significant strides towards treatment goals as shown by her report of reduced duration and intensity of symptoms, improved ability to manage stressors, and increased use of current support system. Client no longer meets criteria for IOP level of care. - Treatment Progress During Treatment & Response: Throughout admission in IOP and PHP programs, Client responded well to treatment and made progress toward tx goals. This was reflected by pt self-report, as well as shown in her reduced DSM-5 scores for anxiety and depression since time of admission. Client missed a few days due to illness/ongoing medical issues causing pain, but overall, client was consistent in attendance. Client started in PHP and made significant strides in increasing self-confidence, using coping skills such as positive affirmations, and engaging in group. Upon IOP admission, pt appeared to withdraw engagement slightly and often took on a passive participatory role. This may have been due to increased pain related to an untreated medical issue which caused pt significant anxiety throughout duration of IOP admission. Pt additionally reported getting back together with her boyfriend near the start of the IOP process. This may have impacted tx engagement as well, as pt increased symptomology leading her to seek mental health tx was the result of difficulties in coping with a breakup with this boyfriend. Despite limited engagement in group sessions, she did do well to provide input when elicited and was receptive of feedback from the group. Pt additionally was able to openly discuss symptoms, stressors, and overall treatment progress during individual sessions. She often would struggle to complete homework assigned and self-reported difficulties in actively practicing the coping skills learned outside of treatment environment. Pt did however do well to expand her social support network by more actively reaching out to friends rather than isolating or avoiding as she reports doing in the past. At admission, client reported symptoms of ruminative anxiety causing panic, depression, and low self-esteem that interfered with her daily functioning. At discharge client reported reduced anxiety, improved stress management, and increased overall self-esteem. Client?s DSM-5 score for anxiety reduced from 9/12 at admission to 2/12 at discharge. Client?s score for depression also decreased by half since admission. Client self-reported increased confidence in coping with symptoms and more willingness to reach out to supports when struggling rather than allowing sx to increase to point of crisis. Issues Still to be Addressed:: Client has shown progress towards treatment goals while in IOP as shown by her reduced DSM-5 scores for anxiety and depression. However, client can continue to benefit from ongoing counseling to reinforce healthy coping skills such as thought challenging, positive self-talk, distress tolerance, and healthy boundaries. Client acknowledges that she continues to struggle with regulating her emotions during times of increased stress and often experiences difficulties in challenging distorted thoughts which results in increased anxiety and rumination. Client would benefit from further working on challenging distorted thinking patterns. Client improved with reducing isolation, but there is a concern post IOP discharge that client will struggle to continue reaching out to supports other than her boyfriend as she appears to rely heavily on his support. Client can continue to increase social support and engagement in meaningful activities. Client would also benefit from healthy boundaries and improving overall self-esteem levels to prevent decompensation should her relationship have any tension as pt self-reports that her self-worth is impacted by the relationship. Client is encouraged to follow-up with outpatient providers established during IOP tx, however there is some concern she will struggle to do so as pt had difficulties in establishing the initial appointments. Discharge Recommendations/Instructions:: Client recommended to follow up with individual outpatient therapy through [facility] and is scheduled for intake appointment next Friday, 04/19. Client was provided resources for psychiatry and is additionally scheduled for an intake appointment on 04/19 following individual therapy at [facility]. Lastly, client was encouraged to continue advocating for herself in the workplace to ensure she does not overschedule herself and lead to burnout. Recommended increasing her utilization of social supports. Discharge Handout: Complete Discharge Handout with client on aftercare options and continuity of care.
--- NOTE | 2019-04-15 09:00 | BH.SGPN.GN ---
Behaviors/Verbalizations/Mental Status: [] Eye contact is good. Motor activity is appropriate. Appearance is casual. Speech is Appropriate. Mood is depressed. Affect is flat. Thoughts are linear and logical. No evidence of psychosis. Reviewed daily check in sheet and no reports of suicidal ideations or intent Client Response/Progress/Benefit: [] Pt participated when prompted. Attentive. Shared with the group that she spoke with her bio-mother with whom she has a very conflicted relationships. Reports that the conversation went really well. Emotion for today is tired. This is pt's last day in IOP. She talked at length regarding her improvements in the program and noted that the group on stress management and coping skills was most useful. Progress noted per pt report. Will be discharged today. Narrative Note: []
--- NOTE | 2019-04-15 10:08 | BH.SGPN.GN ---
Behaviors/Verbalizations/Mental Status: []Client alert and oriented, casually dressed and groomed. Eye contact good. Motor activity appropriate. Speech within normal limits. Affect congruent, mood euthymic. Thoughts linear, logical, no signs of hallucinations or delusions. Client Response/Progress/Benefit: []Client responded well to session, attentive and participating in discussion. Connected to the quote and shared ?unhealthy coping skills keep us stuck.? Engaged in discussion of things that can keep people feeling trapped or stuck in life including; isolation, lack of trust, substance use, focusing on negatives, lack of awareness, denial, and lack of self-worth. Group discussed the connection between thoughts, emotions, and behaviors as well as how negative thinking can keep a person stuck. Client attentive during psychoeducation on maintenance cycles. Client able to identify negative thoughts that have reinforced depression and kept client feeling trapped. Client shared her negative thought which was ?I?m not going to get better, nothing will work.? Client reported in the past this thought has caused more depression and made client want to not try. Appeared to benefit from gaining awareness of how negative thoughts reinforce mental health symptoms and keep people stuck. Progress noted in client?s report of reduced depressive symptoms and improved functioning. Will discharge from [facility] today.
--- NOTE | 2019-04-15 11:10 | BH.SGPN.GN ---
Behaviors/Verbalizations/Mental Status: []Client alert and oriented, neatly dressed and groomed. Eye contact fair. Motor activity appropriate. Speech within normal limits. Affect constricted, mood dysthymic. Thoughts linear, logical, no signs of hallucinations or delusions. Client Response/Progress/Benefit: []Client responded well to session, quiet, but participating when prompted. Client appeared to connect with maintenance cycles and recognized how negative thinking can keep a person stuck. Client identified a negative thought that has kept her stuck. Client?s thought was ?I?m not going to get better, nothing will work.? After prompting, client able to reframe the thought to ?If I practice my coping skills I can get better, I've been able to get better before.? Client shared this thought would improve her mental health because it would make her feel more hopeful and more willing to use her coping skills. Client appeared to benefit from practicing challenging negative thinking. CClient to continue IOP to prevent decompensation. Narrative Note: []
== END 2019-04-24 23:59 ==
LOC: BHIOP 09:00
PROVIDERS: Family Provider Nurse Practitioner Family; PCP Nurse Practitioner Family; Referring Provider Psychiatry & Neurology Psychiatry; Visit Provider Psychiatry & Neurology Psychiatry
DX: F33.2 Major depressive disorder, recurrent severe without psychotic features (principal); F41.1 Generalized anxiety disorder
CPT/HCPCS: H0035; 90832; 90837; 90853

== ENCOUNTER → 2019-03-29 | Outpatient (CLI) | payer BC, OTHER, SELFPAY ==
[2019-03-29 13:53] VITALS: BMI 23.8
== END | disposition home or self-care (01) ==
LOC: LABSPEC 15:32
PROVIDERS: Family Provider Nurse Practitioner Family; PCP Nurse Practitioner Family; Referring Provider Nurse Practitioner Women's Health; Visit Provider Nurse Practitioner Women's Health
DX: N76.0 Acute vaginitis (principal); N89.8 Other specified noninflammatory disorders of vagina
CPT/HCPCS: 87070; 87077; 87086; 87088; 87186; 87205

== ENCOUNTER → 2019-04-01 | Outpatient (CLI) | payer BC, OTHER, SELFPAY ==
[2019-03-23 11:39] VITALS: BMI 23.8
[2019-03-29 13:53] VITALS: BMI 23.8
--- NOTE | 2019-04-01 07:39 | US_ITS ---
STUDY: ULTRASOUND OF THE FEMALE PELVIS - COMPLETE REASON FOR EXAM: Female, 18 years old. Pain. LMP: March 18, 2019 TECHNIQUE: Transabdominal and Transvaginal TECHNICAL QUALITY: Adequate. COMPARISON: None. FINDINGS: The uterus is anteverted and is in a midline position. The uterus measures 7.4 x 3.6 x 4.5 cm. Normal uterine cervix. The endometrium measures 3.2 mm in thickness, and is hyperechoic. There is no demonstrated endometrial mass. There is no demonstrated myometrial mass. I.U.D. - The patient does not have an I.U.D. The right ovary is visualized. The right ovary measures 3.3 x 1.7 x 2.6 cm. There is no right ovarian cyst or ovarian mass. There is no visualized right adnexal mass or complex lesion. There is normal arterial and normal venous vascularity. The left ovary is visualized. The left ovary measures 2.6 x 1.8 x 2.1 cm. There is no left ovarian cyst or ovarian mass. There is no visualized left adnexal mass or complex lesion. There is normal arterial and normal venous vascularity. There is no fluid in the cul-de-sac. Polycystic ovary disease: No. US/Transvaginal Non- IMPRESSION: Within normal limits female pelvis. Electronically Signed: Cira Oconnor MD at 16:50 EDT Tel , Service support ,
--- NOTE | 2019-04-01 07:39 | US_ITS ---
STUDY: ULTRASOUND OF THE FEMALE PELVIS - COMPLETE REASON FOR EXAM: Female, 18 years old. Pain. LMP: March 18, 2019 TECHNIQUE: Transabdominal and Transvaginal TECHNICAL QUALITY: Adequate. COMPARISON: None. FINDINGS: The uterus is anteverted and is in a midline position. The uterus measures 7.4 x 3.6 x 4.5 cm. Normal uterine cervix. The endometrium measures 3.2 mm in thickness, and is hyperechoic. There is no demonstrated endometrial mass. There is no demonstrated myometrial mass. I.U.D. - The patient does not have an I.U.D. The right ovary is visualized. The right ovary measures 3.3 x 1.7 x 2.6 cm. There is no right ovarian cyst or ovarian mass. There is no visualized right adnexal mass or complex lesion. There is normal arterial and normal venous vascularity. The left ovary is visualized. The left ovary measures 2.6 x 1.8 x 2.1 cm. There is no left ovarian cyst or ovarian mass. There is no visualized left adnexal mass or complex lesion. There is normal arterial and normal venous vascularity. There is no fluid in the cul-de-sac. Polycystic ovary disease: No. US/Pelvic (Non ) IMPRESSION: Within normal limits female pelvis. Electronically Signed: Cira Oconnor MD at 16:50 EDT Tel , Service support ,
== END | disposition home or self-care (01) ==
PROVIDERS: Family Provider Nurse Practitioner Family; PCP Nurse Practitioner Family; Referring Provider Nurse Practitioner Women's Health; Visit Provider Nurse Practitioner Women's Health
DX: R10.2 Pelvic and perineal pain (principal)
CPT/HCPCS: 76830; 76856; 93976

== ENCOUNTER → 2019-06-29 09:34 | Outpatient (CLI) | payer OTHER, SELFPAY ==
[2019-06-29 09:23] VITALS: BMI 26.8
[2019-06-29 12:12] LABS: Hemoglobin 13.3 g/dL (12.0-15.0); Mean Corp Hgb Conc 34.1 g/dL (32-36); Mean Corpuscular Hgb 30.9 pg (27.0-32.0); Mean Corpuscular Volume 90.7 fL (81-99); Mean Platelet Vol. 10.2 fl (6.2-12.0); Platelet Count 257 K/mm3 (150-450); RBC Distribution Width CV 12.3 % (11.6-14.6); RBC Distribution Width SD 40.4 fl (35.1-43.9); White Blood Count 5.6 K/mm3 (4.4-11.0)
[2019-06-29 12:30] LABS: ALB/GLOB Ratio 1.2 RATIO (0.9-2.4); AST(SGOT) 13 U/L (15-37); Alanine Aminotransfer ALT/SGPT 23 U/L (13-56); Albumin, Serum 3.7 g/dL (3.2-5.0); Alkaline Phosphatase 50 U/L (45-117); Anion Gap 5 (5-15); BUN 11 mg/dL (7-18); BUN/Creat Ratio 17.9 RATIO (10-20); Calcium,Total 8.6 mg/dL (8.5-10.1); Chloride 109 mmol/L (98-107); Creatinine, Serum 0.62 mg/dL (0.55-1.02); EST Glomerular Filtration Rate 130 mL/min (>60); Est Glom Filt Rate - Afr Amer 157 mL/min (>60); Globulin 3.2 g/dL (2.2-4.2); Glucose 84 mg/dL (74-106); Potassium 4.1 mmol/L (3.5-5.1); Protein, Total 6.9 g/dL (6.4-8.2); Sodium Level 140 mmol/L (136-145)
== END ==
PROVIDERS: Family Provider Nurse Practitioner Family; PCP Internal Medicine; Visit Provider Internal Medicine
DX: F32.9 Major depressive disorder, single episode, unspecified (principal); F41.9 Anxiety disorder, unspecified
CPT/HCPCS: 36415; 80053; 85027

== ENCOUNTER → 2019-08-31 11:11 | Outpatient (CLI) | payer OTHER, SELFPAY ==
[2019-08-31 10:48] VITALS: BMI 27.9
[2019-08-31 12:51] LABS: Thyroid Stim Hormone (TSH) 1.53 uIU/mL (0.358-3.74)
== END ==
PROVIDERS: Family Provider Nurse Practitioner Family; PCP Internal Medicine; Visit Provider Nurse Practitioner Family
DX: R63.5 Abnormal weight gain (principal)
CPT/HCPCS: 36415; 84443

== ENCOUNTER → 2020-03-15 13:14 | Outpatient (CLI) | payer OTHER, SELFPAY ==
[2020-03-15 08:55] VITALS: BMI 27.9
[2020-03-15 15:15] LABS: Chlamydia Trachomatis by PCR Negative (Negative); Neisserai gonorrhoeae by PCR Negative (Negative); Probe Check PASS; Sample Adequacy Control PASS; Specimen Processing Control PASS
[2020-03-17 20:10] LABS: HPV Reflexed? NOT INDICATED
== END ==
PROVIDERS: PCP Internal Medicine; Referring Provider Nurse Practitioner Women's Health; Visit Provider Nurse Practitioner Women's Health
DX: Z11.3 Encounter for screening for infections with a predominantly sexual mode of transmission (principal); R10.2 Pelvic and perineal pain; Z12.4 Encounter for screening for malignant neoplasm of cervix
CPT/HCPCS: 87070; 87205; 87491; 87591; 88175; G0145

== ENCOUNTER → 2020-05-24 09:23 | Outpatient (CLI) | payer OTHER, SELFPAY ==
[2020-05-24 09:09] VITALS: BMI 27.9
[2020-05-24 12:33] LABS: Absolute Lymphocyte Count 2.09 X10^3/uL (0.83-4.51); Absolute Neutrophil Count 3.6 X10^3/uL (2.0-7.7); Basophil# 0.02 X10^3/uL; Basophil% 0.3 % (0-1); Eosinophil# 0.29 X10^3/uL; Eosinophils% 4.6 % (0-5); Hematocrit 38.1 % (37-47); Hemoglobin 12.7 g/dL (12.0-15.0); Lymphocyte # 2.09 X10^3/ul (4.0); Lymphocyte % 33.2 % (19-41); Mean Corp Hgb Conc 33.3 g/dL (32-36); Mean Corpuscular Hgb 29.7 pg (27.0-32.0); Mean Corpuscular Volume 89.2 fL (81-99); Mean Platelet Vol. 10.7 fl (6.2-12.0); Monocyte# 0.29 X10^3/uL; Monocyte% 4.6 % (0-10); NRBC Flagged by Analyzer 0 % (0-5); Neutrophil # 3.59 X10^3/uL (2.7-7.7); Platelet Count 298 K/mm3 (150-450); RBC Distribution Width CV 12.4 % (11.6-14.6); RBC Distribution Width SD 40.2 fl (35.1-43.9); Red Blood Count 4.27 M/mm3 (4.2-5.4); White Blood Count 6.3 K/mm3 (4.4-11.0)
[2020-05-24 12:54] LABS: ALB/GLOB Ratio 1.1 RATIO (0.9-2.4); AST(SGOT) 18 U/L (15-37); Alanine Aminotransfer ALT/SGPT 39 U/L (13-56); Albumin, Serum 3.7 g/dL (3.2-5.0); Alkaline Phosphatase 73 U/L (45-117); Anion Gap 5 (5-15); BUN 12 mg/dL (7-18); BUN/Creat Ratio 18.4 RATIO (10-20); Calcium,Total 8.9 mg/dL (8.5-10.1); Chloride 107 mmol/L (98-107); Creatinine, Serum 0.65 mg/dL (0.55-1.02); EST Glomerular Filtration Rate 121 mL/min (>60); Est Glom Filt Rate - Afr Amer 146 mL/min (>60); Globulin 3.5 g/dL (2.2-4.2); Glucose 80 mg/dL (74-106); Protein, Total 7.2 g/dL (6.4-8.2); Sodium Level 139 mmol/L (136-145)
== END ==
PROVIDERS: PCP Internal Medicine; Referring Provider Internal Medicine; Visit Provider Internal Medicine
DX: K25.9 Gastric ulcer, unspecified as acute or chronic, without hemorrhage or perforation (principal); K21.9 Gastro-esophageal reflux disease without esophagitis; R10.9 Unspecified abdominal pain
CPT/HCPCS: 36415; 80053; 85025

== ENCOUNTER → 2020-10-13 11:49 | Outpatient (CLI) | payer BC, SELFPAY ==
[2020-10-13 11:29] VITALS: BMI 25.9
[2020-10-13 15:08] LABS: Erythrocyte Sedimentation Rate 3 mm/hr (0-30)
[2020-10-16 18:03] LABS: ANTINUCLEAR ANTIBODIES DIRECT Negative (Negative)
== END ==
PROVIDERS: PCP Internal Medicine; Referring Provider Internal Medicine; Visit Provider Internal Medicine
DX: I73.00 Raynaud's syndrome without gangrene (principal)
CPT/HCPCS: 36415; 85652; 86038; 86225; 86235

== ENCOUNTER → 2021-01-09 08:50 | Outpatient (CLI) | payer BC, SELFPAY ==
[2021-01-09 08:08] VITALS: BMI 25.9
[2021-01-09 13:05] LABS: Thyroid Stim Hormone (TSH) 1.16 uIU/mL (0.358-3.74)
== END ==
PROVIDERS: PCP Internal Medicine; Referring Provider Physician Assistant; Visit Provider Physician Assistant
DX: F32.9 Major depressive disorder, single episode, unspecified (principal); F41.9 Anxiety disorder, unspecified; R00.0 Tachycardia, unspecified; R19.8 Other specified symptoms and signs involving the digestive system and abdomen
CPT/HCPCS: 36415; 84439; 84443

== ENCOUNTER → 2021-03-12 | Outpatient (CLI) | payer BC, SELFPAY ==
[2021-03-12 10:59] VITALS: BMI 25.5
== END | disposition home or self-care (01) ==
LOC: LABSPEC 14:26
PROVIDERS: PCP Internal Medicine; Referring Provider Nurse Practitioner Women's Health; Visit Provider Nurse Practitioner Women's Health
DX: N39.0 Urinary tract infection, site not specified (principal)
CPT/HCPCS: 87086; 87088

== ENCOUNTER → 2021-04-16 11:14 | Outpatient (CLI) | payer BC, SELFPAY ==
[2021-04-16 12:25] LABS: Thyroid Stim Hormone (TSH) 0.63 uIU/mL (0.358-3.74)
== END ==
PROVIDERS: PCP Internal Medicine; Referring Provider Physician Assistant; Visit Provider Physician Assistant
DX: F32.9 Major depressive disorder, single episode, unspecified (principal); F41.9 Anxiety disorder, unspecified
CPT/HCPCS: 36415; 84443

== ENCOUNTER → 2021-05-02 | Outpatient (CLI) | payer BC, SELFPAY ==
[2021-05-05 03:07] LABS: Chlamydia By Nucleic Acid AMP Negative (Negative)
[2021-05-05 14:34] LABS: Gonococcus By Nucleic Acid AMP Negative (Negative)
== END | disposition home or self-care (01) ==
LOC: LABSPEC 15:20
PROVIDERS: PCP Internal Medicine; Referring Provider Nurse Practitioner Women's Health; Visit Provider Nurse Practitioner Women's Health
DX: N76.0 Acute vaginitis (principal); Z11.3 Encounter for screening for infections with a predominantly sexual mode of transmission
CPT/HCPCS: 87070; 87205; 87491; 87591

== ENCOUNTER → 2021-05-21 11:12 | Outpatient (CLI) | payer BC, SELFPAY ==
[2021-05-21 12:11] LABS: Absolute Lymphocyte Count 2.12 X10^3/uL (0.83-4.51); Basophil# 0.04 X10^3/uL; Basophil% 0.6 % (0-1); Eosinophil# 0.22 X10^3/uL; Eosinophils% 3.3 % (0-5); Hematocrit 39.2 % (37-47); Hemoglobin 13.3 g/dL (12.0-15.0); Lymphocyte # 2.12 X10^3/ul (0.83-4.51); Lymphocyte % 31.7 % (19-41); Mean Corp Hgb Conc 33.9 g/dL (32-36); Mean Corpuscular Volume 88.5 fL (81-99); Mean Platelet Vol. 10.2 fl (6.2-12.0); Monocyte# 0.35 X10^3/uL; Monocyte% 5.2 % (0-10); NRBC Flagged by Analyzer 0 % (0-5); Neutrophil # 3.95 X10^3/uL (2.7-7.7); Neutrophil % 59.1 % (47-70); Platelet Count 281 K/mm3 (150-450); RBC Distribution Width CV 12.3 % (11.6-14.6); RBC Distribution Width SD 40.2 fl (35.1-43.9); Red Blood Count 4.43 M/mm3 (4.2-5.4); White Blood Count 6.7 K/mm3 (4.4-11.0)
[2021-05-21 12:32] LABS: AST(SGOT) 16 U/L (15-37); Alanine Aminotransfer ALT/SGPT 23 U/L (13-56); Albumin, Serum 3.8 g/dL (3.2-5.0); Alkaline Phosphatase 78 U/L (45-117); Anion Gap 8 (5-15); BUN 15 mg/dL (7-18); BUN/Creat Ratio 23.1 RATIO (10-20); Calcium,Total 8.9 mg/dL (8.5-10.1); Chloride 104 mmol/L (98-107); Creatinine, Serum 0.65 mg/dL (0.55-1.02); EST Glomerular Filtration Rate 120 mL/min (>60); Est Glom Filt Rate - Afr Amer 146 mL/min (>60); Globulin 3.7 g/dL (2.2-4.2); Glucose 90 mg/dL (74-106); Potassium 4.3 mmol/L (3.5-5.1); Protein, Total 7.5 g/dL (6.4-8.2); Sodium Level 139 mmol/L (136-145)
== END ==
PROVIDERS: PCP Internal Medicine; Visit Provider Physician Assistant
DX: Z00.00 Encounter for general adult medical examination without abnormal findings (principal); F32.9 Major depressive disorder, single episode, unspecified; F41.9 Anxiety disorder, unspecified
CPT/HCPCS: 36415; 80053; 85025

== ENCOUNTER → 2022-01-23 | Outpatient (CLI) | payer OTHER, SELFPAY ==
[2022-01-23 16:50] LABS: Absolute Lymphocyte Count 2.64 X10^3/uL (0.83-4.51); Absolute Neutrophil Count 3.8 X10^3/uL (2.0-7.7); Basophil# 0.04 X10^3/uL; Basophil% 0.5 % (0-1); Eosinophil# 0.36 X10^3/uL; Eosinophils% 4.9 % (0-5); Hematocrit 40.6 % (37-47); Hemoglobin 14.1 g/dL (12.0-15.0); Lymphocyte # 2.64 X10^3/ul (0.83-4.51); Lymphocyte % 36.1 % (19-41); Mean Corp Hgb Conc 34.7 g/dL (32-36); Mean Corpuscular Hgb 30.1 pg (27.0-32.0); Mean Corpuscular Volume 86.6 fL (81-99); Mean Platelet Vol. 10.6 fl (6.2-12.0); Monocyte# 0.47 X10^3/uL; Monocyte% 6.4 % (0-10); NRBC Flagged by Analyzer 0 % (0-5); Neutrophil # 3.79 X10^3/uL (2.7-7.7); Neutrophil % 51.8 % (47-70); Platelet Count 271 K/mm3 (150-450); RBC Distribution Width CV 12.2 % (11.6-14.6); RBC Distribution Width SD 38.3 fl (35.1-43.9); Red Blood Count 4.69 M/mm3 (4.2-5.4); White Blood Count 7.3 K/mm3 (4.4-11.0)
[2022-01-23 17:04] LABS: ALB/GLOB Ratio 1.1 RATIO (0.9-2.4); AST(SGOT) 24 U/L (15-37); Alanine Aminotransfer ALT/SGPT 38 U/L (13-56); Alkaline Phosphatase 73 U/L (45-117); Anion Gap 6 (5-15); BUN 15 mg/dL (7-18); BUN/Creat Ratio 21.2 RATIO (10-20); Chloride 103 mmol/L (98-107); Creatinine, Serum 0.71 mg/dL (0.55-1.02); EST Glomerular Filtration Rate 108 mL/min (>60); Est Glom Filt Rate - Afr Amer 131 mL/min (>60); Globulin 3.6 g/dL (2.2-4.2); Glucose 90 mg/dL (74-106); Potassium 3.9 mmol/L (3.5-5.1); Protein, Total 7.6 g/dL (6.4-8.2); Sodium Level 137 mmol/L (136-145)
[2022-01-30 09:29] LABS: Calprotectin, Stool 47 ug/g (0-120)
== END | disposition home or self-care (01) ==
LOC: BIMLAB 15:29
PROVIDERS: PCP Internal Medicine; Visit Provider Internal Medicine
DX: K58.9 Irritable bowel syndrome, unspecified (principal); R10.9 Unspecified abdominal pain; K59.09 Other constipation
CPT/HCPCS: 36415; 80053; 82274; 83630; 83993; 85025; 87506

== ENCOUNTER 2022-05-10 09:33 | Emergency (ER) | payer OTHER, SELFPAY ==
[2022-05-10 09:34] VITALS: BP 137/102; PULSE 114; RESP 16; TEMP 36.6; O2SAT 100; BMI 23.6
--- NOTE | 2022-05-10 09:48 | ED.VIS.GI ---
HPI HPI - GI History of Present Illness Chief Complaint: Abd Pain Informant: patient Abdominal Pain/Flank Pain Onset: Today and Yesterday Context: Gradual Onset Timing: Intermittent Quality: Aching and Cramping Location: Diffuse and Epigastric Current Severity: Mild Maximum Severity: Mild Worsened by: Nothing Relieved by: Nothing Nausea/Vomiting/Emesis GI Symptom: Positive for Nausea; Negative for Vomiting Onset: Today and Yesterday Severity: Mild Diarrhea/Melena/Hematochezia GI Symptom: Positive for Diarrhea; Negative for Melena or Hematochezia Onset: Today, Yesterday and Days Stool Quality: Positive for Watery Severity: Mild Associated Symptoms Associated Symptoms: Negative for Dysuria, Frequency, Hematuria or Urgency Narrative Prior similar symptoms: Yes Recent Illness/Hospitalization: No PFSH PFSH Medical History Abdominal pain Change in bowel habit Chronic constipation Chronic diarrhea Colitis Depression with anxiety Family history of ulcerative colitis ANDREI (generalized anxiety disorder) IBS (irritable bowel syndrome) Nausea Right groin pain Severe major depression without psychotic features Home Medications inulin 2 gram chewable tablet (Fiber Gummies) g PO 05/21/21 [History Last Taken Unknown] dicyclomine 20 mg tablet 20 mg PO TID PRN abdominal pain #120 tabs 01/23/22 [Rx Last Taken Unknown] pantoprazole 40 mg tablet,delayed release 40 mg PO BID #180 tabs 01/23/22 [Rx Last Taken Unknown] mesalamine 1,000 mg rectal suppository 1 g MS QHS 04/23/22 [History Last Taken Unknown] desogestrel 0.15 mg-ethinyl estradiol 0.03 mg tablet (Apri) 1 tab PO QDAY #84 tabs 05/02/22 [Rx Last Taken Unknown] venlafaxine 150 mg capsule,extended release 24 hr 225 mg PO DAILY 05/10/22 [History Last Taken Unknown] Allergy/AdvReac Type Severity Reaction Status Date / Time dextromethorphan Allergy Mild swelling Verified 05/10/22 09:36 [From Delsym] amoxicillin [From Augmentin] Allergy Hives Verified 05/10/22 09:36 clavulanic acid Allergy Hives Verified 05/10/22 09:36 [From Augmentin] lactose AdvReac Abd Verified 05/10/22 09:36 cramps/diarrhea Family History Mother Anxiety and depression Grandmother Asthma Father Hypertension Surgical History History of colonoscopy S/P tonsillectomy Social History current occupational status: employed current occupation: [email or web address] Smoking Status: Never smoker alcohol intake: never substance use type: does not use caffeine: No what type of physical activity do you participate in: none seatbelt use: always do you feel safe at home: Yes additional social history: Single ROS ROS ED ROS Narrative Nausea without vomiting. Abdominal cramping. Diarrhea. No fever. No chills. No dysuria. Review of Systems ROS Unobtainable: Denies due to encephalopathy Constitutional Constitutional ED: Denies chills or fever(s) ENT ENT ED: Denies ear pain Cardiovascular Cardiovascular: Denies chest pain Respiratory/Chest Respiratory/Chest: Denies cough Gastrointestinal Gastrointestinal: Reports abdominal pain, diarrhea and nausea; Denies constipation, melena or vomiting Genitourinary Genitourinary ED: Denies dysuria or hematuria Musculoskeletal Musculoskeletal: Denies arthralgias Integumentary Denies abscess Neurologic Neurologic: Denies headache(s) Psychiatric Psychiatric: Denies anxiety Endocrine Endocrinology: Denies polydipsia Hematologic/Lymphatic Hematologic/Lymphatic: Denies easy bleeding Allergic/Immunologic Allergic/Immunologic ED: Denies mouth swelling EXAM Physical Exam Narrative Exam Narrative: Well-appearing 21-year-old female. Vital signs stable afebrile. H EENT exam unremarkable. Moist with memories. Neck nontender. Lungs clear to auscultation. Heart regular rhythm rate about 110 no murmur. Abdomen soft. Nondistended. Normal bowel sounds. No peritoneal signs. Right upper or right lower quadrant unremarkable. No hernia or mass. No signs of obstruction. She is not epigastric tenderness. Moving all 4 extremities. Nontender no edema. Back nontender. Neurologic exam normal. Const Vital Signs: 05/10/22 09:34 Temperature 97.9 F Temperature Source Temporal Pulse Rate 114 H Respiratory Rate 16 Blood Pressure 137/102 H Blood Pressure Mean 113 Pulse Ox 100 Oxygen Delivery Method Room Air Positive well nourished and well developed; Negative for obese, cachectic, contractures or unkempt General Appearance ED: well developed and NAD; Negative for unkempt, cachectic, contractures or pallor Nutritional Appearance: Negative for cachectic or obese HEENT Reports moist mucous membranes normocephalic and atraumatic; Negative for trauma or tenderness Eyes PERRL and EOMs intact bilaterally General Eye ED: Negative for pale conjunctiva or scleral icterus Neck no lymphadenopathy, supple and no JVD General: Negative for tenderness Carotids: Negative for other Lymph Lymphatic: Negative for other Resp normal respiratory effort and clear to auscultation bilaterally Effort and Inspection: respiratory distress and retractions Auscultation: Negative for rales, rhonchi or wheezes Cardio regular rhythm, S1 normal heart sound, S2 normal heart sound and no murmurs; Negative for regular rate Rate: tachycardic; Negative for bradycardia Rhythm: Negative for abnormal rhythm GI non-distended and no masses; Negative for non-tender Inspection: Negative for abdominal distention Auscultation: normoactive bowel sounds Palpation: soft and tender; Negative for guarding, rigid, hepatomegaly, splenomegaly, hernia, mass, pulsatile mass or rebound tenderness present Back/Spine no CVA tenderness General Back: Negative for CVA tenderness Cervical Spine: Negative for cervical spine tenderness Thoracic Spine / Upper Back: Negative for thoracic spinal tenderness Lumbar Spine / Lower Back: Negative for lumbar spinal tenderness Coccyx: Negative for other Extremity full ROM General Extremety ED: Negative for edema or tenderness General Extremity: Negative for edema Neuro CN's II-XII intact bilaterally and moves all extremities Sensorium / Orientation: alert, oriented to person, oriented to place and oriented to time; Negative for orientation impaired, confused, lethargic or stuporous Motor Exam: strength 5/5 throughout Psych mental status grossly normal and thought process normal Appearance: Negative for unkempt Attitude: No agitated Mood & Affect: anxious; Negative for depressed or tearful Skin no wounds General Skin Exam: Negative for jaundice or pallor Lesions: no lesions Rashes: no rashes Trauma: Negative for abrasion Nails: Negative for discolored MDM MDM MDM Narrative Medical decision making narrative: 21-year-old female with a history of irritable bowel possibly inflammatory bowel but she does not know a specific diagnosis. She has had prior upper and lower scopes. She had a CAT scan 2 months ago which she states was negative at another facility. She was seen and treated at another emergency department this morning prior to arrival here. She was treated with IV fluids and Zofran. Reportedly had negative labs there which were trying to obtain. She does states she still having cramping. Her exam is very benign. She is not dehydrated. She does not need imaging. She has Bentyl at home. She was given a prescription today for Reglan at the other facility. She is also been using ibuprofen and Tylenol. I explained to her with the nurse present in the room we were happy to do any test or evaluation that was necessary and would care but there is really no other test we needed to do today. Repeat exam patient is doing well at 10:04 AM. I discussed her test results with her from the outside facility. She has nausea medication prescription already. She has Bentyl at home and other medications. She can follow-up with her GI doctor or primary care provider as needed over the next several days to week. Lab Data Attestation: I reviewed the patient's lab results. Lab results narrative: We were able to obtain the labs from the other facility CBC showed a normal white count of 4.9. H&H of 13 and 36.5. Platelets of 222. UA was negative with 0 red and 0 white cells. test was negative it was a urine . Her electrolytes were unremarkable. She had a normal gap of 7. BUN and creatinine 10 and 0.6. Her liver enzymes were normal. Her lipase was 79. Discharge Plan Triage Chief Complaint: Abd Pain ED Provider: Wilfredo Prakash Dx/Rx/DC Orders Clinical Impression: Abdominal pain, Anxiety and depression, Diarrhea, History of irritable bowel syndrome Instructions: Abdominal Pain, ED Diarrhea, Unknown Cause Prescriptions: No Action Fiber Gummies 2 gram tablet,chewable PO pantoprazole 40 mg tablet,delayed release (DR/EC) 40 mg PO BID Qty: 180 2RF dicyclomine 20 mg tablet 20 mg PO TID PRN (Reason: abdominal pain) Qty: 120 3RF mesalamine 1,000 mg suppository 1 g MS QHS Label Comments: unwrap and insert 1 suppository rectally at bedtime venlafaxine 150 mg capsule,extended release 24hr 225 mg PO DAILY desogestrel-ethinyl estradiol [Apri] 0.15-0.03 mg tablet 1 tab PO QDAY Qty: 84 0RF Primary Care Provider: Aicha Tatum Referrals: Aicha Tatum MD [Primary Care Provider] - 1 Week if not improving Andreas Ann MD [Non-Staff] - 3-5 Days if not improving Activity Restrictions/Additional Instructions: Plenty of fluids and rest to revive him getting dehydrated. Reglan as needed for nausea that gave you at the other emergency department. Bentyl for abdominal cramping and/or Tylenol and Motrin. Follow-up with your GI doctor if not improving or your primary care physician. Disposition Disposition: Home, Self Care
== END 2022-05-10 10:18 | disposition home or self-care (01) ==
PROVIDERS: Emergency Provider Emergency Medicine; PCP Internal Medicine; Visit Provider Emergency Medicine
DX: R10.9 Unspecified abdominal pain (principal); F32.A Depression, unspecified; F41.9 Anxiety disorder, unspecified; R11.0 Nausea; R19.7 Diarrhea, unspecified
CPT/HCPCS: 99282

== ENCOUNTER → 2022-05-20 | Outpatient (CLI) | payer OTHER, SELFPAY | END | disposition home or self-care (01) | LOC: LABSPEC 16:46 | PROVIDERS: PCP Internal Medicine; Referring Provider Nurse Practitioner Women's Health; Visit Provider Nurse Practitioner Women's Health | DX: N89.8 Other specified noninflammatory disorders of vagina (principal); R10.2 Pelvic and perineal pain | CPT/HCPCS: 87070; 87086; 87088; 87205 ==

== ENCOUNTER 2022-06-06 10:32 | Outpatient (RCR) | payer OTHER, SELFPAY | END 2022-06-24 23:59 | LOC: NS 10:32 | PROVIDERS: PCP Internal Medicine; Referring Provider Internal Medicine; Visit Provider Internal Medicine | DX: Z71.3 Dietary counseling and surveillance (principal); K52.9 Noninfective gastroenteritis and colitis, unspecified | CPT/HCPCS: 97802 ==

== ENCOUNTER → 2022-12-18 | Outpatient (CLI) | payer OTHER, SELFPAY ==
[2022-12-21 05:08] LABS: Chlamydia By Nucleic Acid AMP Negative (Negative); Gonococcus By Nucleic Acid AMP Negative (Negative)
== END | disposition home or self-care (01) ==
LOC: LABSPEC 16:17
PROVIDERS: PCP Internal Medicine; Referring Provider Nurse Practitioner Women's Health; Visit Provider Nurse Practitioner Women's Health
DX: N89.8 Other specified noninflammatory disorders of vagina (principal)
CPT/HCPCS: 87070; 87205; 87491; 87591

== ENCOUNTER 2023-06-20 11:10 | Emergency (ER) | payer SELFPAY ==
[2023-06-20 11:11] VITALS: BP 145/103; PULSE 115; RESP 18; TEMP 36.6; O2SAT 99; BMI 28.1
--- NOTE | 2023-06-20 11:21 | ED.VIS.GI ---
HPI HPI - GI History of Present Illness Chief Complaint: Abd Pain Informant: patient Abdominal Pain/Flank Pain Onset: Days (4) Context: Sudden Onset Timing: Continuous Quality: Sharp and Stabbing Location: Diffuse Worsened by: Nothing Relieved by: Nothing Nausea/Vomiting/Emesis GI Symptom: Positive for Nausea; Negative for Vomiting Diarrhea/Melena/Hematochezia GI Symptom: Negative for Diarrhea, Melena or Hematochezia Associated Symptoms Associated Symptoms: Positive for Frequency; Negative for Dysuria or Hematuria Narrative Narrative: Patient presents with abdominal pain that has been getting worse over the last 4 days. Patient states it began suddenly. Patient states it has been constant. Patient states it started in her lower abdomen and then radiated to her left flank and then over her upper abdomen. Patient states nothing makes it worse and nothing makes it better. Patient describes it as sharp and stabbing. Patient admits to nausea but denies any vomiting. Patient denies any diarrhea, melena, or hematochezia. Patient admits to some urinary frequency but denies any dysuria or urgency. Patient states her last menstrual period was approximately 1 month ago. Patient denies any abnormal vaginal bleeding or discharge. Patient states she went to the emergency department at [facility] and had a CT scan done there. 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 [facility] Medical History Burning with urination Chronic constipation Chronic diarrhea Colitis Depression with anxiety Family history of ulcerative colitis ANDREI (generalized anxiety disorder) IBS (irritable bowel syndrome) Major depressive disorder, recurrent, moderate Rib pain on left side Severe major depression without psychotic features Vaginitis Home Medications dicyclomine 20 mg tablet 20 mg PO TID PRN abdominal pain #120 tabs 01/23/22 [Rx Last Taken Unknown] pantoprazole 40 mg tablet,delayed release 40 mg PO BID #180 tabs 01/23/22 [Rx Last Taken Unknown] hydroxyzine HCl 25 mg tablet 25 mg PO TID PRN anxiety #60 tabs 06/04/22 [Rx Last Taken Unknown] bupropion HCl 150 mg 24 hr tablet, extended release (Wellbutrin XL) 150 mg PO QAM #30 tabs 04/02/23 [Rx Last Taken Unknown] buspirone 15 mg tablet 15 mg PO BID 30 days #60 tabs 05/26/23 [Rx Last Taken Unknown] hyoscyamine sulfate 0.125 mg sublingual tablet mg sublingual 05/26/23 [History Last Taken Unknown] rifaximin 550 mg tablet (Xifaxan) mg PO 05/26/23 [History Last Taken Unknown] venlafaxine 150 mg capsule,extended release 24 hr 150 mg PO DAILY #90 caps 05/26/23 [Rx Last Taken Unknown] fluconazole 150 mg tablet 150 mg PO Q3D 2 doses #2 tabs 06/04/23 [Rx Last Taken Unknown] desogestrel 0.15 mg-ethinyl estradiol 0.03 mg tablet (Enskyce) See Rx Instructions .Route .COMPLEX #84 tabs 06/13/23 [Rx Last Taken Unknown] ibuprofen 600 mg tablet 600 mg PO Q8H PRN PRN pain #20 TABLETS 06/20/23 [Rx Last Taken Unknown] ondansetron 4 mg disintegrating tablet 4 mg PO Q8H PRN PRN Nausea #10 tabs 06/20/23 [Rx Last Taken Unknown] sulfamethoxazole 800 mg-trimethoprim 160 mg tablet 1 tab PO BID #6 TABLETS 06/20/23 [Rx Last Taken Unknown] Allergy/AdvReac Type Severity Reaction Status Date / Time dextromethorphan Allergy Mild swelling Verified 06/20/23 12:26 [From Delsym] amoxicillin [From Augmentin] Allergy Hives Verified 06/20/23 12:26 clavulanic acid Allergy Hives Verified 06/20/23 12:26 [From Augmentin] morphine AdvReac Intermediate Other Verified 06/20/23 12:26 lactose AdvReac Abd Verified 06/20/23 12:26 cramps/diarrhea Family History Mother Anxiety and depression Grandmother Asthma Father Hypertension Surgical History History of colonoscopy S/P tonsillectomy Social History current occupational status: employed current occupation: [employer] Smoking Status: Never smoker alcohol intake: never substance use type: does not use caffeine: No what type of physical activity do you participate in: none seatbelt use: always do you feel safe at home: Yes additional social history: Single ROS ROS ED Constitutional Constitutional ED: Denies chills or fever(s) Eyes Eyes: Denies blurry vision or change in vision ENT ENT ED: Denies rhinorrhea or sore throat Cardiovascular Cardiovascular: Denies chest pain or palpitations Respiratory/Chest Respiratory/Chest: Denies cough or dyspnea Gastrointestinal Gastrointestinal: Reports abdominal pain and nausea; Denies vomiting Genitourinary Genitourinary ED: Reports urinary frequency; Denies dysuria or hematuria Musculoskeletal Musculoskeletal: Reports back pain; Denies neck pain Integumentary Denies abscess or rash Neurologic Neurologic: Denies headache(s) or weakness Allergic/Immunologic Allergic/Immunologic ED: Denies mouth swelling or urticaria EXAM Physical Exam Const Vital Signs: 06/20/23 11:11 06/20/23 13:10 Temperature 97.9 F Temperature Source Temporal Pulse Rate 115 H 114 H Respiratory Rate 18 16 Blood Pressure 145/103 H 147/100 H Blood Pressure Mean 117 115 Pulse Ox 99 100 Oxygen Delivery Method Room Air Room Air Positive well nourished and well developed General Appearance ED: well developed and NAD HEENT Reports moist mucous membranes Neck supple and no JVD Resp normal respiratory effort and clear to auscultation bilaterally Cardio regular rhythm Rate: tachycardic GI non-distended Palpation: soft and tender epigastric, LLQ, RLQ, LUQ, RUQ, periumbilical and suprapubic; Negative for guarding or rebound tenderness present Extremity full ROM Neuro CN's II-XII intact bilaterally, moves all extremities and no sensory deficits noted Sensorium / Orientation: alert Motor Exam: strength 5/5 throughout Psych mental status grossly normal and thought process normal MDM MDM MDM Narrative Medical decision making narrative: Differential diagnosis includes gastroenteritis, pancreatitis, cholecystitis, cholelithiasis, GERD, urinary tract infection, pyelonephritis, ureteral calculus, ovarian cyst, ectopic , and IBS. CBC will be obtained to assess for leukocytosis and anemia. Comprehensive metabolic profile will be obtained to assess for Paddock function, renal function, and electrolyte abnormality. Lipase will be obtained to assess for pancreatitis. Urinalysis will be obtained to assess for urinary tract infection. Serum hCG will be obtained to assess for . Serum lactate will be obtained to assess for sepsis and ischemic bowel. Lab Data Attestation: I reviewed the patient's lab results. Lab results narrative: CBC was reviewed and shows a mild leukocytosis of 13.3. The remainder is within normal limits. Comprehensive metabolic profile was reviewed. AST was slightly elevated at 85 and ALT was slightly elevated at 257. Bilirubin was normal. Alkaline phosphatase was normal. Lipase was reviewed and was normal at 41. Serum lactate was reviewed and was normal at 1.4. Serum hCG was reviewed and was negative. Urinalysis was reviewed leukocyte esterase was 100 with 5-10 white blood cells and 1+ bacteria. Labs: Laboratory Results - last 24 hr 06/20/23 06/20/23 06/20/23 11:26 12:20 12:34 WBC 13.3 H RBC 4.65 Hgb 13.9 Hct 40.3 MCV 86.7 MCH 29.9 MCHC 34.5 RDW Std Deviation 40.9 RDW Coeff of Hammad 13.3 Plt Count 237 MPV 10.1 Immature Gran % (Auto) 0.600 Neut % (Auto) 80.5 H Lymph % (Auto) 12.7 L Sevier % (Auto) 5.9 Eos % (Auto) 0.1 Baso % (Auto) 0.2 Absolute Neuts (auto) 10.7 H Absolute Lymphs (auto) 1.69 Nucleated RBC % 0 Sodium 137 Potassium 3.5 Chloride 108 H Carbon Dioxide 24.0 Anion Gap 5 BUN 10 Creatinine 0.81 Estim Creat Clear Calc 80.12 Est GFR (MDRD) Af Amer 110 Est GFR (MDRD) Non-Af 91 BUN/Creatinine Ratio 12.3 Glucose 102 Lactic Acid 1.4 Calcium 9.1 Total Bilirubin 1.00 AST 85 H ALT 257 H Alkaline Phosphatase 93 Total Protein 7.5 Albumin 3.7 Globulin 3.8 Albumin/Globulin Ratio 1.0 Lipase 41 Serum , Qual NEGATIVE Urine Color Yellow Urine Clarity Clear Urine pH 5.0 Ur Specific [place] 1.025 Urine Protein 30 H Urine Glucose (UA) Normal Urine Ketones 50 H Urine Occult Blood 10 H Urine Nitrite Negative Urine Bilirubin 1 H Urine Urobilinogen 4 H Ur Leukocyte Esterase 100 H Urine RBC 0 SEEN Urine WBC 5-10 SEEN Ur Squamous Epith Cells 0-5 SEEN Urine Bacteria 1+ Urine Mucus 0 SEEN Radiography Diagnostic Testing: Clinical Impression(s) from Imaging Studies Abdomen/Pelvis CT 06/20/23 13:00 IMPRESSION: Multiple layering gallstones. Findings suspicious for a 3.4 cm x 3.2 cm soft tissue nodule in the inferior medial aspect of the right breast. A large amount of fecal material is seen in the colon. Electronically Signed: Loyd Lewis MD at 14:57 EDT , CT scan of the abdomen pelvis was obtained. There are multiple layering gallstones. There is a large amount of fecal material throughout the colon. There is no acute process noted. This was interpreted by the radiologist and was also independently reviewed by myself. Additional Tests and Interventions Additional Tests or Interventions: Urine culture was ordered. Treatment and Re-Evaluation :: Patient was advised of her findings. Patient was advised it could be a flareup of her IBS. Patient was instructed to use laxatives as needed. Patient was given a prescription for a short course of ibuprofen and Zofran. Patient was given a prescription for Bactrim. Patient was instructed to follow-up with her primary care physician in 5 to 7 days. Patient understood and was agreeable with the plan. All questions were answered. Discharge Plan Triage Chief Complaint: Abd Pain ED Provider: Javed Smith Dx/Rx/DC Orders Clinical Impression: Abdominal pain, Chronic constipation, Urinary tract infection Instructions: ED Abdominal Pain Unkn Cause Fem, ED Constipation (Adult), ED Cystitis Female Adult Prescriptions: New sulfamethoxazole-trimethoprim [sulfamethoxazole-trimethoprim] 800-160 mg tablet 1 tab PO BID Qty: 6 0RF ondansetron [ondansetron] 4 mg tablet,disintegrating 4 mg PO Q8H PRN PRN (Reason: Nausea) Qty: 10 0RF ibuprofen 600 mg tablet 600 mg PO Q8H PRN PRN (Reason: pain) Qty: 20 0RF No Action pantoprazole 40 mg tablet,delayed release (DR/EC) 40 mg PO BID Qty: 180 2RF dicyclomine 20 mg tablet 20 mg PO TID PRN (Reason: abdominal pain) Qty: 120 3RF hydroxyzine HCl 25 mg tablet 25 mg PO TID PRN (Reason: anxiety) Qty: 60 2RF bupropion HCl [Wellbutrin XL] 150 mg tablet extended release 24 hr 150 mg PO QAM Qty: 30 2RF Xifaxan 550 mg tablet PO Patient Comments: take 1 tablet by mouth three times a day after meals for 14 days hyoscyamine sulfate 0.125 mg tablet, sublingual sublingual Patient Comments: DISSOLVE 1 TABLET BY MOUTH UNDER THE TONGUE FOUR TIMES A DAY NEEDED FOR PAIN buspirone 15 mg tablet 15 mg PO BID 30 Days Qty: 60 2RF venlafaxine 150 mg capsule,extended release 24hr 150 mg PO DAILY Qty: 90 1RF fluconazole 150 mg tablet 150 mg PO Q3D Qty: 2 0RF Rx Instructions: Hold Hydroxyzine while on Fluconazole. desogestrel-ethinyl estradiol [Enskyce] 0.15-0.03 mg tablet See Rx Instructions .ROUTE .COMPLEX Qty: 84 0RF Dose Instruction: take 1 tablet by mouth once daily Rx Instructions: take 1 tablet by mouth once daily Primary Care Provider: Aicha Tatum Referrals: Aicha Tatum MD [Primary Care Provider] - 3-5 Days Disposition Disposition: Home, Self Care
[2023-06-20 12:22] LABS: Mucous, Urine 0 SEEN /hpf (<or=2+); Red Blood Cells-Urine 0 SEEN /hpf (0-5)
[2023-06-20] MEDS: 0.9% Normal Saline (1000mL) 1,000 ML 1000 ML IV (12:24)
[2023-06-20] MEDS: Ondansetron 4 MG/2 ML Vial IV (12:25)
[2023-06-20 12:28] LABS: Color, Urine Yellow (Yellow); Glucose, Dipstick Normal (Normal); Ketone-Dipstick 50 mg/dl (Negative); Leukocyte Esterase-Dipstick 100 /ul (Negative); Nitrite-Dipstick Negative (Negative); Occult Blood-Urine 10 /ul (Negative); Protein-Dipstick 30 mg/dl (Negative); Specific Gravity, Urine 1.025 (1.002-1.030); Urine Clarity Clear (Clear); Urine Urobilinogen 4 mg/dl (Normal)
[2023-06-20 12:31] LABS: Absolute Lymphocyte Count 1.69 X10^3/uL (0.83-4.51); Absolute Neutrophil Count 10.7 X10^3/uL (2.0-7.7); Basophil# 0.03 X10^3/uL; Basophil% 0.2 % (0-1); Eosinophil# 0.01 X10^3/uL; Eosinophils% 0.1 % (0-5); Hematocrit 40.3 % (37-47); Hemoglobin 13.9 g/dL (12.0-15.0); Lymphocyte # 1.69 X10^3/ul (0.83-4.51); Lymphocyte % 12.7 % (19-41); Mean Corp Hgb Conc 34.5 g/dL (32-36); Mean Corpuscular Hgb 29.9 pg (27.0-32.0); Mean Corpuscular Volume 86.7 fL (81-99); Mean Platelet Vol. 10.1 fl (6.2-12.0); Monocyte# 0.78 X10^3/uL; Monocyte% 5.9 % (0-10); NRBC Flagged by Analyzer 0 % (0-5); Neutrophil # 10.68 X10^3/uL (2.7-7.7); Neutrophil % 80.5 % (47-70); Platelet Count 237 K/mm3 (150-450); RBC Distribution Width CV 13.3 % (11.6-14.6); RBC Distribution Width SD 40.9 fl (35.1-43.9); Red Blood Count 4.65 M/mm3 (4.2-5.4); White Blood Count 13.3 K/mm3 (4.4-11.0)
[2023-06-20 12:41] LABS: Internal QC Validated? YES +Cl - CLEAR BKGD; Pregnancy, Serum, hCG Quali. NEGATIVE Negative
[2023-06-20 12:42] LABS: Urine Bilirubin Dipstick 1 mg/dL (Negative)
[2023-06-20 12:43] LABS: Bacteria 1+ /hpf (None Seen); Squamous Epithelial Cells - UA 0-5 SEEN /hpf (5-10); White Blood Cells 5-10 SEEN /hpf (0-5)
[2023-06-20 12:47] LABS: AST(SGOT) 85 U/L (15-37); Alanine Aminotransfer ALT/SGPT 257 U/L (13-56); Albumin, Serum 3.7 g/dL (3.2-5.0); Alkaline Phosphatase 93 U/L (45-117); Anion Gap 5 (5-15); BUN 10 mg/dL (7-18); BUN/Creat Ratio 12.3 RATIO (10-20); Calcium,Total 9.1 mg/dL (8.5-10.1); Chloride 108 mmol/L (98-107); Creatinine, Serum 0.81 mg/dL (0.55-1.02); EST Glomerular Filtration Rate 91 mL/min (>60); Est Glom Filt Rate - Afr Amer 110 mL/min (>60); Estimated Creatinine Clearance 80.12 ml/min; Globulin 3.8 g/dL (2.2-4.2); Glucose 102 mg/dL (74-106); Lipase 41 U/L (13-75); Potassium 3.5 mmol/L (3.5-5.1); Protein, Total 7.5 g/dL (6.4-8.2); Sodium Level 137 mmol/L (136-145)
--- NOTE | 2023-06-20 13:00 | CT_ITS ---
STUDY: CT ABDOMEN AND PELVIS WITH CONTRAST REASON FOR EXAM: Female, 23 years old. Abdominal pain -- IV PO Contrast. Four-day history of left lower quadrant pain. RADIATION DOSAGE (If Supplied By Facility): CTDIvol = ( 11.87 ) mGy, DLP = ( 627.40 ) mGycm TECHNIQUE: Transaxial images were obtained from the dome of the diaphragm to the symphysis pubis without oral contrast. Oral and amp; IV Gastrografin and amp; 100mL Isovue-300 was administered. Sagittal and coronal images were reconstructed. Individualized dose optimization techniques were used for this CT. COMPARISON: None. FINDINGS: 3.4 size by 3.2 cm soft tissue nodule in the right breast. The visualized lung bases are unremarkable. The visualized portions of the heart are within normal limits. Normal liver. Multiple small layering gallstones are seen in the gallbladder lumen. Normal spleen. Normal pancreas. Normal bilateral adrenal glands. Normal right kidney. Normal left kidney. Normal visualized stomach. Normal small intestine. Large amount of fecal material is seen in the colon. The appendix is visualized and appears normal. Normal abdominal aorta. Normal inferior vena cava. Normal retroperitoneum. The bladder is empty at the time of the examination. Normal abdominal wall. Normal osseous structures. CT/Abdomen/Pelvis WITH Contrast IMPRESSION: Multiple layering gallstones. Findings suspicious for a 3.4 cm x 3.2 cm soft tissue nodule in the inferior medial aspect of the right breast. A large amount of fecal material is seen in the colon. Electronically Signed: Loyd Lewis MD at 14:57 EDT ,
[2023-06-20 13:10] VITALS: BP 147/100; PULSE 114; RESP 16; O2SAT 100
[2023-06-20 13:25] LABS: Lactic Acid 1.4 mmol/L (0.4-1.9)
--- NOTE | 2023-06-20 13:48 | ED.RN ---
Patient up and ambulatory to bathroom, gait steady.
[2023-06-20] MEDS: Dicyclomine 20 MG/2 ML Vial IM (16:00)
[2023-06-20] MEDS: Smz/Tmp Ds Tablet 1 TABLET PO (16:00)
== END 2023-06-20 16:06 | disposition home or self-care (01) ==
PROVIDERS: Emergency Provider Emergency Medicine; PCP Internal Medicine; Visit Provider Emergency Medicine
DX: R10.9 Unspecified abdominal pain (principal); F33.1 Major depressive disorder, recurrent, moderate; N39.0 Urinary tract infection, site not specified; K59.09 Other constipation; R11.2 Nausea with vomiting, unspecified; K58.9 Irritable bowel syndrome, unspecified; Z79.899 Other long term (current) drug therapy; F41.1 Generalized anxiety disorder; Z79.3 Long term (current) use of hormonal contraceptives
CPT/HCPCS: 74177; 80053; 81001; 83605; 83690; 84703; 85025; 87086; 87088; 96361; 96372; 96374; 96375; 99282; J7030; Q9967; J2405

== ENCOUNTER → 2023-06-25 | Outpatient (CLI) | payer SELFPAY ==
[2023-06-25 17:38] LABS: ALB/GLOB Ratio 0.9 RATIO (0.9-2.4); AST(SGOT) 59 U/L (15-37); Alanine Aminotransfer ALT/SGPT 297 U/L (13-56); Albumin, Serum 3.5 g/dL (3.2-5.0); Alkaline Phosphatase 90 U/L (45-117); Anion Gap 7 (5-15); BUN 12 mg/dL (7-18); BUN/Creat Ratio 18.3 RATIO (10-20); Calcium,Total 8.7 mg/dL (8.5-10.1); Chloride 109 mmol/L (98-107); Creatinine, Serum 0.66 mg/dL (0.55-1.02); EST Glomerular Filtration Rate 117 mL/min (>60); Est Glom Filt Rate - Afr Amer 142 mL/min (>60); Globulin 3.7 g/dL (2.2-4.2); Glucose 103 mg/dL (74-106); Potassium 3.3 mmol/L (3.5-5.1); Protein, Total 7.2 g/dL (6.4-8.2); Sodium Level 140 mmol/L (136-145)
== END | disposition home or self-care (01) ==
LOC: BIMLAB 15:09
PROVIDERS: PCP Internal Medicine; Visit Provider Internal Medicine
DX: R74.8 Abnormal levels of other serum enzymes (principal)
CPT/HCPCS: 36415; 80053

== ENCOUNTER → 2023-10-11 | Outpatient (CLI) | payer BC, SELFPAY ==
[2023-10-15 04:07] LABS: Chlamydia By Nucleic Acid AMP Negative (Negative); Gonococcus By Nucleic Acid AMP Negative (Negative)
[2023-10-16 21:22] LABS: HPV Reflexed? NOT INDICATED
== END | disposition home or self-care (01) ==
PROVIDERS: PCP Internal Medicine; Visit Provider Advanced Practice Midwife
DX: Z11.3 Encounter for screening for infections with a predominantly sexual mode of transmission (principal); N89.8 Other specified noninflammatory disorders of vagina; Z12.4 Encounter for screening for malignant neoplasm of cervix
CPT/HCPCS: 87070; 87077; 87205; 87491; 87591; 88175; G0145

== ENCOUNTER → 2023-10-14 | Outpatient (CLI) | payer BC, SELFPAY ==
--- NOTE | 2023-10-14 11:30 | US_ITS ---
STUDY: ULTRASOUND OF THE FEMALE PELVIS - COMPLETE REASON FOR EXAM: Female, 23 years old. Pelvic pain LMP: September 13, 2023. TECHNIQUE: Transvaginal TECHNICAL QUALITY: Adequate. COMPARISON: Comparison is made with prior study dated April 01, 2019. FINDINGS: The uterus is anteverted and is in a midline position. The uterus measures 7.4 cm x 3.4 cm x 2.8 cm. Normal uterine cervix. The endometrium measures 1.9 mm in thickness, and is hyperechoic. There is no demonstrated endometrial mass. There is no demonstrated myometrial mass. I.U.D. - The patient does not have an I.U.D. The right ovary is visualized. The right ovary measures 2.2 cm x 1.6 cm x 1.9 cm. There is no right ovarian cyst or ovarian mass. There is no visualized right adnexal mass or complex lesion. There is normal arterial and normal venous vascularity. The left ovary is visualized. The left ovary measures 2.3 cm x 1.8 cm x 2 cm. There is no left ovarian cyst or ovarian mass. There is no visualized left adnexal mass or complex lesion. There is normal arterial and normal venous vascularity. There is no fluid in the cul-de-sac. US/Transvaginal Non- IMPRESSION: Normal female pelvis. Electronically Signed: Loyd Lewis MD at 13:35 EST ,
== END | disposition home or self-care (01) ==
PROVIDERS: PCP Internal Medicine; Referring Provider Advanced Practice Midwife; Visit Provider Advanced Practice Midwife
DX: R10.2 Pelvic and perineal pain (principal)
CPT/HCPCS: 76830

== ENCOUNTER → 2023-12-01 | Outpatient (CLI) | payer BC, SELFPAY ==
--- NOTE | 2023-12-01 10:07 | VDLE_ITS ---
Reason For Study: LLE PAIN RIGHT LEFT CFV is compressible, spontaneous, phasic, GSV is normal. competent and demonstrates normal CFV is compressible, spontaneous, phasic, augmentation. competent, and demonstrates normal Procedure augmentation. This is a venous duplex using B-mode, color FV is compressible, spontaneous, phasic, flow and spectral Doppler. competent and demonstrates normal Exam performed in department. augmentation. A preliminary report was called and/or faxed POP V is compressible, spontaneous, phasic, to Ailyn Aragon [employer]ER-C @ [phone] @ 10:30 competent and demonstrates normal am. augmentation. T/P Trunk is compressible. PTV is compressible. LT PerV is compressible. VL/Venous Duplex US, Unilateral Interpretation Summary Deep veins of the left lower extremity are patent and compressible segmentally. There is no evidence of left lower extremity deep vein thrombosis. Valvular competence appears intac t within the proximal deep venous system on the left . The left great saphenous vein appears patent a nd compressible segmentally. The right common femoral vein is patent and compressible . Ordering Physician: Ailyn Aragon Referring Physician: Aicha Tatum Performed By: Enid Ashraf, LEVI, RVT
== END | disposition home or self-care (01) ==
LOC: CVS 10:06
PROVIDERS: PCP Internal Medicine; Referring Provider Nurse Practitioner; Visit Provider Nurse Practitioner
DX: M79.605 Pain in left leg (principal)
CPT/HCPCS: 93971

== ENCOUNTER → 2024-05-13 | Outpatient (CLI) | payer OTHER, SELFPAY ==
[2024-05-13 13:12] LABS: Color, Urine Yellow (Yellow); Glucose, Dipstick Normal (Normal); Ketone-Dipstick Negative (Negative); Leukocyte Esterase-Dipstick Negative /ul (Negative); Nitrite-Dipstick Negative (Negative); Occult Blood-Urine 25 /ul (Negative); Protein-Dipstick Negative (Negative); Specific Gravity, Urine 1.015 (1.002-1.030); Urine Bilirubin Dipstick Negative (Negative); Urine Clarity Sl. Cloudy (Clear); Urine Urobilinogen Normal (Normal)
[2024-05-18 03:07] LABS: Chlamydia By Nucleic Acid AMP Negative (Negative); Gonococcus By Nucleic Acid AMP Negative (Negative)
== END | disposition home or self-care (01) ==
LOC: LABSPEC 12:09
PROVIDERS: PCP Internal Medicine; Referring Provider Nurse Practitioner Family; Visit Provider Nurse Practitioner Family
DX: Z20.2 Contact with and (suspected) exposure to infections with a predominantly sexual mode of transmission (principal); N89.8 Other specified noninflammatory disorders of vagina
CPT/HCPCS: 81002; 87070; 87086; 87088; 87205; 87491; 87591

== ENCOUNTER → 2024-05-17 | Outpatient (CLI) | payer OTHER, SELFPAY ==
--- NOTE | 2024-05-17 15:30 | VUL_PTH ---
PATIENT: DAO BLUE LOC: [facility] U#:[id number] AGE/SX: 23/F ROOM: RE05/17/[address]: Dr. Belkys Steven DO : 2000 BED: DIS: 05/17/2024 SPEC #: [id number] RECD: 05/17/24 16:41 STATUS: LOTUS RERedd #: [id number] KARTHIKEYAN: 05/17/24 15:[address]: Belkys Steven DEPT: SURGICAL PATHOLOGY RECD BY: Andrés Barnett ENTERED: 05/18/24 09:34 SP TYPE: VULVA BX OTHR DR: Dr. Aicha Tatum MD Tissues: Vulva, NOS Procedures: Special Stain Group I Surgery Specimen Level IV GMS Stain (control) HEADER OPERATION: Vulvar biopsy PRE-OP DIAGNOSIS: Vulvar dermatitis TISSUE SUBMITTED: Perineal area (perineum) MICROSCOPIC DIAGNOSIS Perineal region, biopsy: Hyperkeratosis and minimal dermal chronic inflammation, non-specific. No evidence of fungal organisms. See comment. 05/19/2024 COMMENT GMS stain with matched control was used in the evaluation of this case. Case has been reviewed in consultation with Dr. Anne who concurs with the above diagnosis. IDC:[email or web address] MICROSCOPIC DESCRIPTION Slides are reviewed. GROSS DESCRIPTION Received is one container labeled with the patient's name and not further designated. The specimen consists of a fragment of downing soft tissue measuring 0.3 x 0.2 x 0.1cm. The entire specimen is submitted in one cassette. 05/18/2024 TC:3 CPT:[id number]
== END | disposition home or self-care (01) ==
LOC: LABSPEC 16:49
PROVIDERS: PCP Internal Medicine; Referring Provider Obstetrics & Gynecology; Visit Provider Obstetrics & Gynecology
DX: L85.9 Epidermal thickening, unspecified (principal); L30.9 Dermatitis, unspecified
CPT/HCPCS: 88305; 88312

== ENCOUNTER → 2024-09-08 | Outpatient (CLI) | payer MEDICAID, SELFPAY | END | disposition home or self-care (01) | LOC: LABSPEC 16:27 | PROVIDERS: PCP Internal Medicine; Referring Provider Nurse Practitioner Family; Visit Provider Nurse Practitioner Family | DX: N89.8 Other specified noninflammatory disorders of vagina (principal) | CPT/HCPCS: 87070; 87205 ==

== ENCOUNTER → 2024-09-29 | Outpatient (CLI) | payer MEDICAID, SELFPAY ==
--- NOTE | 2024-09-29 18:11 | US_ITS ---
PROCEDURE: PELVIC W/ TRANSVAGINAL REASON FOR EXAM: Right pelvic pain. TECHNIQUE: Transabdominal and transvaginal pelvic ultrasound. COMPARISON: None. FINDINGS: Measurements: Uterus: 7.5 cm x 4.6 cm x 3.1 cm. Endometrial Thickness: 3 mm. Right Ovary: 2.6 cm x 2.3 cm x 1.5 cm. Left Ovary: 2.3 cm x 2.3 cm x 1.5 cm. Uterus: Normal size, myometrial echotexture, and contour. Endometrium: Unremarkable. Right ovary: Normal size and echotexture. Blood flow is documented to the ovary. Left ovary: Normal size and echotexture. Blood flow is documented to the ovary. No large pelvic mass identified. US/Pelvic w/ Transvaginal IMPRESSION: UNREMARKABLE PELVIC ULTRASOUND. Reading Location: [id number]
== END | disposition home or self-care (01) ==
PROVIDERS: PCP Internal Medicine; Referring Provider Obstetrics & Gynecology; Visit Provider Obstetrics & Gynecology
DX: R10.2 Pelvic and perineal pain (principal)
CPT/HCPCS: 76830; 76856

== ENCOUNTER → 2024-10-13 | Outpatient (CLI) | payer MEDICAID, SELFPAY | END | disposition home or self-care (01) | LOC: LABSPEC 15:23 | PROVIDERS: PCP Internal Medicine; Referring Provider Nurse Practitioner Family; Visit Provider Nurse Practitioner Family | DX: N89.8 Other specified noninflammatory disorders of vagina (principal) | CPT/HCPCS: 87070; 87205 ==

== ENCOUNTER → 2024-12-27 | Outpatient (CLI) | payer MEDICAID, SELFPAY | END | disposition home or self-care (01) | LOC: LABSPEC 12:06 | PROVIDERS: PCP Internal Medicine; Referring Provider Nurse Practitioner Women's Health; Visit Provider Nurse Practitioner Women's Health | DX: N94.89 Other specified conditions associated with female genital organs and menstrual cycle (principal) | CPT/HCPCS: 87070; 87077; 87205 ==